=== PATIENT | female | born 1965 | race Hispanic/Latino ===

== ENCOUNTER → 2019-06-06 | Outpatient (CLI) | payer OTHER ==
[~2019-06-06] MED LIST: IOTHALAMATE MEGLUMINE 17.20% 250 ML BTL ONE
--- NOTE | 2019-06-06 13:19 | Diagnostic Imaging Report ---
EXAM: FL RETROGRADE CYSTOGRAM INDICATION: Bladder rupture COMPARISON: None available. Performing physician: Ivan Parks MD FINDINGS: HONEY BLENDER: The bowel gas pattern is non-obstructive. Multiple bilateral pelvic phleboliths noted BLADDER: Cysto conray contrast was instilled into the bladder by gravity via the indwelling Major catheter. The bladder fills with contrast and there is no evidence of leak or intraluminal filling defect to suggest mass or thrombus. Fluoroscopy Time: 0.5 minutes Radiation dose: 11.2 mGy IMPRESSION: Retrograde cystogram demonstrating no evidence of leak. Major catheter was successfully removed after the exam. Signed by: Ivan Parks MD on 06/06/2019 1:15 PM
== END ==
LOC: DX 10:42
PROVIDERS: ATTEND Obstetrics & Gynecology
DX: N99.72 Accidental puncture and laceration of a genitourinary system organ or structure during other procedure (principal)
CPT/HCPCS: 74430; Q9958

== ENCOUNTER 2020-02-21 13:26 | Observation (INO) | payer OTHER ==
[~2020-02-21] VITALS: Ht 162.6 cm; Wt 59.0 kg
[2020-02-21 14:26] LABS: PARTIAL THROMBOPLASTIN TIME 29.5 seconds (23.8-35.5)
[2020-02-21 14:28] LABS: BASOPHILS % 0.4 % (0.0-1.0); EOSINOPHILS # (AUTO) 0.2 (0.0-0.4); EOSINOPHILS % 1.9 % (0.0-6.0); HEMATOCRIT 37.4 % (34.2-44.1); HEMOGLOBIN 12.7 g/dL (12.0-16.0); LYMPHOCYTES # (AUTO) 2.9 (1.0-3.2); LYMPHOCYTES % 35.3 % (18.0-39.1); MEAN CORPUSCULAR HEMOGLOBIN 31.8 pg (28-32); MEAN CORPUSCULAR VOLUME 93.7 fL (81-99); MONOCYTES # (AUTO) 0.5 (0.2-0.8); MONOCYTES % 6.2 % (4.4-11.3); NEUTROPHILS # (AUTO) 4.6 (2.1-6.9); NEUTROPHILS % 55.4 % (38.7-80.0); PLATELET COUNT 265 x10e3/uL (140-360); RED BLOOD COUNT 3.99 x10e6/uL (3.6-5.1); RED CELL DISTRIBUTION WIDTH 12.3 % (11.7-14.4)
[2020-02-21 14:32] LABS: ALANINE AMINOTRANSFERASE 37 IU/L (0-55); ALBUMIN 4.3 g/dL (3.5-5.0); ALBUMIN/GLOBULIN RATIO 1.1 (0.8-2.0); ALKALINE PHOSPHATASE 79 IU/L (40-150); ANION GAP 17.8 mmol/L (8-16); BLOOD UREA NITROGEN 14 mg/dL (7-26); BUN/CREATININE RATIO 17 (6-25); CALCIUM 9.8 mg/dL (8.4-10.2); CARBON DIOXIDE 20 mmol/L (22-29); CHLORIDE 108 mmol/L (98-107); CREATINE KINASE 167 IU/L (29-168); CREATININE, SERUM 0.84 mg/dL (0.57-1.11); EST GLOMERULAR FILTRATION RATE > 60 ML/MIN (60-); GLUCOSE 120 mg/dL (74-118); INR 0.89; PROTHROMBIN TIME 12.5 seconds (11.9-14.5); SODIUM 143 mmol/L (136-145)
[2020-02-21 14:40] LABS: POTASSIUM 2.8 mmol/L (3.5-5.1)
[2020-02-21] MEDS ORDERED: POTASSIUM CHLORIDE 20 MEQ TAB CR PO STA (14:56)
--- NOTE | 2020-02-21 14:58 | Diagnostic Imaging Report ---
CT BRAIN WO HISTORY: Dizziness COMPARISON: None. TECHNIQUE: Noncontrast axial scans were obtained from skull base to the vertex. Coronal and sagittal reconstructions obtained from the axial data. One or more of the following dose reduction techniques were used: Automated exposure control, adjustment of the mA and/or kV according to patient size, and/or utilization of iterative reconstruction technique. DISCUSSION: Scalp/Skull: Unremarkable. Brain sulci: Appropriate for patient's age. Ventricles: Normal in size and configuration. No hydrocephalus. Extra-axial spaces: No masses or fluid collections. Parenchyma: No abnormal densities. No mass, hemorrhage, or large vascular territory acute infarct. Dural sinuses: No abnormal densities. Sellar/Suprasellar region: Intact. Skull base: Intact. Incidental findings: None. IMPRESSION: No intracranial abnormalities. Signed by: Dr. Santi Harrison M.D. on 02/21/2020 2:55 PM
--- NOTE | 2020-02-21 16:02 | Diagnostic Imaging Report ---
EXAMINATION: CHEST SINGLE (PORTABLE) INDICATION: CP COMPARISON: None FINDINGS: TUBES and LINES: None. LUNGS: Lungs are well inflated. Mild patchy bibasilar opacities. No evidence of lobar consolidation or pulmonary edema. PLEURA: No pleural effusion or pneumothorax. HEART AND MEDIASTINUM: The cardiomediastinal silhouette is unremarkable. BONES AND SOFT TISSUES: No acute osseous lesion. Soft tissues are unremarkable. UPPER ABDOMEN: No free air under the diaphragm. IMPRESSION: Mild patchy bibasilar opacities, which may represent atelectasis or infection in the appropriate clinical setting. No evidence of lobar pneumonia. Signed by: Dr. Shelby Milton MD on 02/21/2020 3:58 PM
--- NOTE | 2020-02-21 16:26 | Emergency Department Note ---
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 PT AAOX4. GIVEN NTG SL X 3 ENROUTE WITH PAIN FROM 03/08 TO 02/05. NAD. SR. NON COMPLIANT WITH [facility] MEDS. 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 Any updates have been documented here. Past Medical History Recent Fever: No Clinical Suspicion of Infectio: No New/Unexplained Change in Ment: No Past Medical History: Hypertension, GERD Social History Smoking Cessation: Unknown if ever smoked Counseling Performed: No Alcohol Use: None Any Illegal Drug Use: No TB Exposure/Symptoms: No Physically hurt or threatened: No Family History Family history of heart diseas: No Other Any Pre-Existing Lines (PICC,: Yes ([facility] EMS) Review of Systems Review of Systems Constitutional: Reports as per HPI, Reports weakness EENTM: Reports no symptoms Cardiovascular: Reports as per HPI Respiratory: Reports no symptoms Gastrointestinal: Reports no symptoms Genitourinary: Reports no symptoms Musculoskeletal: Reports no symptoms Integumentary: Reports no symptoms Neurological: Reports no symptoms Psychological: Reports no symptoms Endocrine: Reports no symptoms Hematological/Lymphatic: Reports no symptoms Physical Exam Related Data Allergies: Coded Allergies: aspirin (Verified Allergy, Unknown, 02/21/20) Triage Vital Signs Vital Signs Date Time Temp Pulse Resp B/P (MAP) Pulse Ox O2 Delivery O2 Flow Rate FiO2 02/21/20 13:28 97.8 111 14 173/91 100 Room Air Vital signs reviewed: Yes Physical Exam CONSTITUTIONAL Constitutional: Present well-developed, Present well-nourished HENT HENT: Present normocephalic, Present atraumatic, Present oropharynx clear/moist, Present nose normal HENT L/R: Present left ext ear normal, Present right ext ear normal EYES Eyes: Reports PERRL, Reports conjunctivae normal NECK Neck: Present ROM normal PULMONARY Pulmonary: Present effort normal, Present breath sounds normal CARDIOVASCULAR Cardiovascular: Present regular rhythm, Present heart sounds normal, Present capillary refill normal, Present normal rate GASTROINTESTINAL Abdominal: Present soft, Present nontender, Present bowel sounds normal GENITOURINARY Genitourinary: Present exam deferred SKIN Skin: Present warm, Present dry MUSCULOSKELETAL Musculoskeletal: Present ROM normal NEUROLOGICAL Neurological: Present alert, Present oriented x 3, Present no gross motor or sensory deficits PSYCHOLOGICAL Psychological: Present mood/affect normal, Present judgement normal Results Laboratory Result Diagram: 02/21/20 1342 02/21/20 1342 Laboratory Laboratory Tests Test 02/21/20 15:00 02/21/20 13:42 White Blood Count 8.24 x10e3/uL (4.8-10.8) Red Blood Count 3.99 x10e6/uL (3.6-5.1) Hemoglobin 12.7 g/dL (12.0-16.0) Hematocrit 37.4 % (34.2-44.1) Mean Corpuscular Volume 93.7 fL (81-99) Mean Corpuscular Hemoglobin 31.8 pg (28-32) Mean Corpuscular Hemoglobin Concent 34.0 g/dL (31-35) Red Cell Distribution Width 12.3 % (11.7-14.4) Platelet Count 265 x10e3/uL (140-360) Neutrophils (%) (Auto) 55.4 % (38.7-80.0) Lymphocytes (%) (Auto) 35.3 % (18.0-39.1) Monocytes (%) (Auto) 6.2 % (4.4-11.3) Eosinophils (%) (Auto) 1.9 % (0.0-6.0) Basophils (%) (Auto) 0.4 % (0.0-1.0) Neutrophils # (Auto) 4.6 (2.1-6.9) Lymphocytes # (Auto) 2.9 (1.0-3.2) Monocytes # (Auto) 0.5 (0.2-0.8) Eosinophils # (Auto) 0.2 (0.0-0.4) Basophils # (Auto) 0.0 (0.0-0.1) Absolute Immature Granulocyte (auto 0.07 x10e3/uL (0-0.1) Prothrombin Time 12.5 seconds (11.9-14.5) Prothromb Time International Ratio 0.89 Activated Partial Thromboplast Time 29.5 seconds (23.8-35.5) Sodium Level 143 mmol/L (136-145) Potassium Level 2.8 mmol/L (3.5-5.1) Chloride Level 108 mmol/L (98-107) Carbon Dioxide Level 20 mmol/L (22-29) Anion Gap 17.8 mmol/L (8-16) Blood Urea Nitrogen 14 mg/dL (7-26) Creatinine 0.84 mg/dL (0.57-1.11) Estimat Glomerular Filtration Rate > 60 ML/MIN (60-) BUN/Creatinine Ratio 17 (6-25) Glucose Level 120 mg/dL (74-118) Calcium Level 9.8 mg/dL (8.4-10.2) Magnesium Level 1.6 MG/DL (1.3-2.1) Total Bilirubin 0.4 mg/dL (0.2-1.2) Aspartate Amino Transf (AST/SGOT) 27 IU/L (5-34) Alanine Aminotransferase (ALT/SGPT) 37 IU/L (0-55) Alkaline Phosphatase 79 IU/L (40-150) Creatine Kinase 167 IU/L (29-168) Creatine Kinase MB 1.90 ng/mL (0-5.0) Troponin I < 0.001 ng/mL (0-0.300) B-Type Natriuretic Peptide 13.4 pg/mL (0-100) Total Protein 8.2 g/dL (6.5-8.1) Albumin 4.3 g/dL (3.5-5.0) Globulin 3.9 g/dL (2.3-3.5) Albumin/Globulin Ratio 1.1 (0.8-2.0) Lab results reviewed: Yes Imaging Imaging results reviewed: Yes Procedures 12 Lead ECG Interpretation ECG Interpretation : ECG: ECG 1 Sales Review Clerk: Interpreted by ED physician Date: Feb 21, 2020 Time: 13:43 Rhythm: sinus rhythm Rate: normal (80) QRS axis: normal ST segments normal: Yes T waves normal: Yes Clinical Impression: abnormal ECG (PROLONGED QT) Assessment & Plan Medical Decision Making MDM CBC, CHEM, ECG, CXR, CT BRAIN, CARDIAC ENZYMES - R/O STEMI/NSTEMI, ELECTROLYTE ABNL, CEREBRAL BLEED Reassessment Reassessment SPOKE WITH DR BURTON FOR ADMIT, OBS TELE Assessment & Plan Final Impression: (1) Near syncope (2) Chest pain (3) Palpitations (4) Hypokalemia Depart Disposition: ADMITTED Last Vital Signs Date Time Temp Pulse Resp B/P (MAP) Pulse Ox O2 Delivery O2 Flow Rate FiO2 02/21/20 14:14 84 14 158/77 100 Room Air 02/21/20 14:06 98.6 Medications in the ED Potassium Chloride 40 meq NOW STAT PO Last administered on 02/21/20at 15:15; Admin Dose 40 MEQ; Start 02/21/20 at 14:56; Stop 02/21/20 at 15:20; Status DC JUANITO VERDUZCO MD Feb 21, 2020 16:26
[2020-02-21] MEDS ORDERED: NITROGLYCERIN 0.4 MG SUBL SL PRN (16:30)
[2020-02-21] MEDS ORDERED: ONDANSETRON HCL INJ 2MG/ML 2ML 2 MG/ML VIAL IV PRN (16:30)
[2020-02-21] MEDS ORDERED: KCL 20MEQ/.9 SOD CHL 1,000 ML IV ONE (17:15)
--- NOTE | 2020-02-21 18:15 | NUR ---
Received patient via wheelchair from ER. Respiration even and unlabored without SOB. Denies chest discomfort. Call light in reach.
[2020-02-21] MEDS: FAMOTIDINE 20 MG/2 ML VIAL IV SCH (18:22)
[2020-02-21 18:24] VITALS: BP 148/83
[2020-02-21] MEDS ORDERED: IPRATROPIUM BROMIDE INHALER 12.9 GM INH INH PRN (19:00)
[2020-02-21] MEDS ORDERED: ALBUTEROL SULFATE HFA 8GM INHALATION AEROSOL INH PRN (19:00)
[2020-02-21] MEDS ORDERED: AZITHROMYCIN 500MG/NS 250 ML 250 ML IV SCH (19:00)
[2020-02-21] MEDS ORDERED: BENZONATATE 100 MG CAP PO PRN (19:00)
[2020-02-21] MEDS ORDERED: CEFTRIAXONE SOD 1 GM/NS 50 ML 50 ML IV SCH (19:00)
[2020-02-21] MEDS ORDERED: MAGNESIUM SULFATE 2GM/50ML IV NR (19:30)
[2020-02-21 19:53] VITALS: BP 139/88
[2020-02-21 20:00] VITALS: BP 139/88
[2020-02-21 20:20] LABS: CREATINE KINASE MB 1.7 ng/mL (0-5.0)
[2020-02-21] MEDS ORDERED: LOSARTAN POTAS100 MG PO (20:33)
--- NOTE | 2020-02-21 20:35 | NUR ---
SPOKE TO DR. BURTON REGARDING PATIENT C/O HEADACHE AND REQUEST FOR SLEEPING MEDICINE. NEW ORDERS RECEIVED FOR PRN TYLENOL 650MG Q4H PO AND PRN BENADRYL 50MG HS PO
[2020-02-21] MEDS ORDERED: DIPHENHYDRAMINE HCL 25 MG CAP PO PRN (20:45)
[2020-02-21] MEDS ORDERED: ACETAMINOPHEN 325 MG TAB PO PRN (20:45)
--- NOTE | 2020-02-21 22:27 | Diagnostic Imaging Report ---
EXAM: CT Chest WITHOUT contrast 02/21/2020 8:42 PM INDICATION: Chest pain. Abnormal chest x-ray with possible COVID 19 COMPARISON: None TECHNIQUE: Chest was scanned utilizing a multidetector helical scanner from the lung apex through the level of the adrenal glands without administration of IV contrast. Absence of intravenous contrast decreases sensitivity for detection of lymphadenopathy and vascular pathology. Coronal and sagittal reformations were obtained. Routine protocol was performed. IV CONTRAST: None RADIATION DOSE: Total DLP: mGy*cm Estimated effective dose: (DLP x 0.014 x size factor) mSv COMPLICATIONS: None FINDINGS: LINES/ TUBES: None. LUNGS AND AIRWAYS: 3 mm noncalcified nodule in the right middle lobe anteriorly on image 56. Lingular linear atelectasis. Airways are normal. PLEURA: The pleural spaces are clear. HEART AND MEDIASTINUM: The thyroid gland is normal. No mediastinal, hilar or axillary lymphadenopathy. The heart is normal in size.. There is no pericardial effusion. UPPER ABDOMEN: Limited non-contrast views of the upper abdomen show hepatic steatosis with focal fatty sparing about the gallbladder fossa.. 1.5 cm cyst in the left hepatic lobe. 3 mm low-attenuation lesion in the posterior right hepatic lobe on image 104 is too small to be characterize, however, most likely benign in etiology.. The adrenal glands are normal. BONES: The visualized bony thorax is within normal limits. SOFT TISSUES: Unremarkable. IMPRESSION: No evidence of pneumonia as per clinical query. Signed by: Dr. Maureen Medrano M.D. on 02/21/2020 10:24 PM
[2020-02-22] VITALS: BP 117/96
[2020-02-22] MEDS ORDERED: POTASSIUM CHLORIDE 20 MEQ TAB CR PO ONE
[2020-02-22 01:57] LABS: CREATINE KINASE MB 1.4 ng/mL (0-5.0)
[2020-02-22 04:00] VITALS: BP 120/82
[2020-02-22] MEDS: FAMOTIDINE 20 MG/2 ML VIAL IV SCH (05:16)
[2020-02-22 07:46] LABS: BASOPHILS % 0.5 % (0.0-1.0); EOSINOPHILS # (AUTO) 0.2 (0.0-0.4); EOSINOPHILS % 1.9 % (0.0-6.0); HEMATOCRIT 33.5 % (34.2-44.1); HEMOGLOBIN 11.7 g/dL (12.0-16.0); MEAN CORPUSCULAR HEMOGLOBIN 33.1 pg (28-32); MEAN CORPUSCULAR HGB CONC 34.9 g/dL (31-35); MEAN CORPUSCULAR VOLUME 94.6 fL (81-99); MONOCYTES # (AUTO) 0.7 (0.2-0.8); MONOCYTES % 7.7 % (4.4-11.3); NEUTROPHILS # (AUTO) 5.9 (2.1-6.9); NEUTROPHILS % 66.7 % (38.7-80.0); PLATELET COUNT 250 x10e3/uL (140-360); RED BLOOD COUNT 3.54 x10e6/uL (3.6-5.1); RED CELL DISTRIBUTION WIDTH 12.3 % (11.7-14.4)
[2020-02-22 08:09] LABS: ALANINE AMINOTRANSFERASE 31 IU/L (0-55); ALBUMIN 3.5 g/dL (3.5-5.0); ALKALINE PHOSPHATASE 55 IU/L (40-150); ANION GAP 11.3 mmol/L (8-16); BLOOD UREA NITROGEN 11 mg/dL (7-26); BUN/CREATININE RATIO 13 (6-25); CALCIUM 8.8 mg/dL (8.4-10.2); CARBON DIOXIDE 21 mmol/L (22-29); CHLORIDE 112 mmol/L (98-107); CHOL/HDL RATIO 4.8 (3.0-3.6); CHOLESTEROL 189 MD/DL (0-199); CREATININE, SERUM 0.83 mg/dL (0.57-1.11); EST GLOMERULAR FILTRATION RATE > 60 ML/MIN (60-); GLUCOSE 94 mg/dL (74-118); HDL CHOLESTEROL 39 MG/DL (40-60); LDL CHOLESTEROL 116 MG/DL (60-130); POTASSIUM 4.3 mmol/L (3.5-5.1); SODIUM 140 mmol/L (136-145); TRIGLYCERIDES 168 MG/DL (0-149)
[2020-02-22 08:33] LABS: MAGNESIUM 2.1 MG/DL (1.3-2.1); PHOSPHORUS 2.9 MG/DL (2.3-4.7)
[2020-02-22 08:53] VITALS: BP 129/84
[2020-02-22 09:06] LABS: CREATINE KINASE MB 1.3 ng/mL (0-5.0)
[2020-02-22] MEDS ORDERED: LISINOPRIL 10 MG TAB PO ONE (09:30)
[2020-02-22 09:31] VITALS: BP 129/84
[2020-02-22] MEDS ORDERED: MAGNESIUM OXIDE 400 MG TAB PO ONE (09:45)
[2020-02-22] MEDS ORDERED: MAGNESIUM OXID400 MG PO (10:08)
[2020-02-22] MEDS ORDERED: LISINOPRIL10 MG PO (10:08)
--- NOTE | 2020-02-22 10:16 | History and Physical ---
PRIMARY CARE PHYSICIAN: Larry Riddle MD. CHIEF COMPLAINT: Generalized weakness, dizziness, chest pressure, palpitations. HISTORY OF PRESENT ILLNESS: The patient is a 54-year-old female, who had some symptoms of upper chest onset with hypertensive urgency. The patient with potassium of 2.8, and she was having chest pressures, generalized weakness, and also having some palpitations. Along with that she was having mid systolic blood pressure in the 180s. EMS gave the patient nitroglycerin sublingual, which resulted in given the patient headache. The patient is otherwise stable, however. Cardiac enzyme was negative. In the emergency room, chest x-ray showed vague opacity of the bilateral basilar lung. Therefore, a CT of the chest was obtained. The patient is otherwise stable. She was placed on IV fluids and potassium replacement was done. PAST MEDICAL HISTORY: Hypertension. PAST SURGICAL HISTORY: Noncontributory. SOCIAL HISTORY: The patient does not smoke or use alcohol. No regular drugs. ALLERGIES: ASPIRIN. HOME MEDICATIONS: Losartan 100 mg daily. PHYSICAL EXAMINATION: VITAL SIGNS: Temperature was 98, blood pressure 173/91, pulse rate 111, respiration 14. GENERAL: The patient is not in acute distress. She is awake. HEENT: Normocephalic and atraumatic. Anicteric. NECK: Supple grossly. PULMONARY: Clear. CARDIOVASCULAR: Regular rate and rhythm. ABDOMEN: Soft and unremarkable. EXTREMITIES: No cyanosis or edema. NEUROLOGIC: No gross focal deficits. LABORATORY DATA: Sodium is 143, potassium 2.8, chloride 108, bicarb 20, BUN is 14, creatinine 0.8 glucose 129, magnesium is 1.6, albumin is 4.38. Liver enzyme is unremarkable/normal. WBC is 8.8, hemoglobin 12.7, hematocrit 37, platelets of 265. Chest x-ray show mild patchy bibasilar opacity. Chest x-ray was one view portable. CT brain unremarkable. IMPRESSION: 1. Hypertensive urgency. 2. Abnormal chest x-ray. 3. Low potassium. 4. Low magnesium of 1.7. PLAN: 1. Obtain CT of the chest without contrast to address the possibility of the abnormal chest x-ray. 2. Replace potassium. 3. IV fluids. 4. Hypertensive medication. 5. Repeat lab in the morning. The patient is otherwise stable. We will obtain a COVID PCR, and if CT scan is normal, we will obtain a rapid test as well. The patient is otherwise stable. MD SHAYY Cuadra/IRLANDA /[id number]
--- NOTE | 2020-02-22 11:11 | Discharge Summary ---
PRIMARY CARE PHYSICIAN: Larry Riddle MD. Please review my history and physical. DIAGNOSES: Hypertensive urgency; hypokalemia, corrected; generalized weakness, resolved. HISTORY OF PRESENT ILLNESS: A 54-year-old female. Please review my history and physical on this patient. Potassium that was low at 2.8, now replaced and normal at 4.3. Magnesium 1.6, after replacement now is 2.1. The patient did receive 2 g IV magnesium. Her blood pressure is better now. The patient was given p.r.n. blood pressure medication. She is stable. She will go home today with the following changes: 1. Stop losartan. 2. Lisinopril 10 mg daily. 3. Magnesium oxide 400 mg twice a day. 4. The patient to follow up with Dr. Riddle next week. 5. The patient will need repeated blood work. 6. The patient is otherwise stable. CT chest was negative. No sign of pneumonia. No opacity of the bases of the lung. Her COVID PCR is pending and results will be available in a few days. 7. The patient is otherwise stable. She is asymptomatic. She is feeling much better. No weakness. No heaviness in the chest or any congestion. No headaches. The patient is stable and discharged home with 2 medications as mentioned above and discontinue losartan. I discussed with the patient's plan regarding followup with Dr. Riddle, her primary care physician for medication adjustment. MD SHAYY Cuadra/MAYCOLL /[id number]
--- NOTE | 2020-02-22 11:28 | NUR ---
Discharge instruction provided regarding new medications and side effects. Home prescription medication given. Discharge packet provided. PIV to left AC discontinued, catheter tip intact, no bleeding noted. Transported via wheelchair to private vehicle. All personal belongings taken.
== END 2020-02-22 11:28 | disposition home or self-care (01) ==
LOC: ER 13:33 → ERHOLD 16:32 → MED/SURG 18:06
PROVIDERS: ADMIT Internal Medicine; ATTEND Internal Medicine
DX: E87.6 Hypokalemia (principal); I16.0 Hypertensive urgency; Z11.59 Encounter for screening for other viral diseases; E83.42 Hypomagnesemia; K21.9 Gastro-esophageal reflux disease without esophagitis
CPT/HCPCS: 36415 ×2; 70450; 71045; 71250; 80053 ×2; 80061; 82550 ×2; 82553 ×2; 83735 ×2; 83880; 84100; 84484 ×2; 85025 ×2; 85610; 85730; 93005; 99285; G0378 ×2; J0456; J0696; J3475; U0002

== ENCOUNTER 2020-03-04 15:22 | Observation (INO) | payer OTHER ==
[~2020-03-04] VITALS: Ht 152.4 cm; Wt 59.9 kg
[~2020-03-04 15:22] MED LIST changes: -IOTHALAMATE MEGLUMINE 17.20% 250 ML BTL ONE; +LISINOPRIL10 MG PO; +LOSARTAN POTAS100 MG PO; +MAGNESIUM OXID400 MG PO
[2020-03-04 16:14] LABS: BASOPHILS % 0.3 % (0.0-1.0); EOSINOPHILS # (AUTO) 0.1 (0.0-0.4); EOSINOPHILS % 1.2 % (0.0-6.0); HEMATOCRIT 38.4 % (34.2-44.1); HEMOGLOBIN 13.2 g/dL (12.0-16.0); LYMPHOCYTES # (AUTO) 1.3 (1.0-3.2); LYMPHOCYTES % 14.5 % (18.0-39.1); MEAN CORPUSCULAR HEMOGLOBIN 32.4 pg (28-32); MEAN CORPUSCULAR HGB CONC 34.4 g/dL (31-35); MEAN CORPUSCULAR VOLUME 94.1 fL (81-99); MONOCYTES # (AUTO) 0.7 (0.2-0.8); MONOCYTES % 7.5 % (4.4-11.3); NEUTROPHILS % 76.2 % (38.7-80.0); PLATELET COUNT 312 x10e3/uL (140-360); RED BLOOD COUNT 4.08 x10e6/uL (3.6-5.1); RED CELL DISTRIBUTION WIDTH 11.9 % (11.7-14.4)
[2020-03-04 16:28] LABS: CLARITY,URINE CLEAR (CLEAR); COLOR,URINE YELLOW (YELLOW); LEUKOCYTE ESTERASE ,URINE NEGATIVE (NEGATIVE)
[2020-03-04 16:29] LABS: BILIRUBIN,URINE NEGATIVE (NEGATIVE); KETONES,URINE NEGATIVE (NEGATIVE); NITRITE,URINE NEGATIVE (NEGATIVE); PROTEIN,URINE DIPSTICK NEGATIVE (NEGATIVE); URINE UROBILINOGEN 0.2 mg/dL (0.2 - 1)
[2020-03-04 16:36] LABS: RBC,URINE 0-5 /HPF (0-5)
[2020-03-04 16:39] LABS: ALANINE AMINOTRANSFERASE 32 IU/L (0-55); ALBUMIN 4.3 g/dL (3.5-5.0); ALKALINE PHOSPHATASE 78 IU/L (40-150); ANION GAP 12.9 mmol/L (8-16); BLOOD UREA NITROGEN 13 mg/dL (7-26); BUN/CREATININE RATIO 16 (6-25); CALCIUM 9.9 mg/dL (8.4-10.2); CARBON DIOXIDE 24 mmol/L (22-29); CHLORIDE 106 mmol/L (98-107); CREATINE KINASE 52 IU/L (29-168); CREATININE, SERUM 0.79 mg/dL (0.57-1.11); EST GLOMERULAR FILTRATION RATE > 60 ML/MIN (60-); GLUCOSE 116 mg/dL (74-118); POTASSIUM 3.9 mmol/L (3.5-5.1); SODIUM 139 mmol/L (136-145)
--- OUTSIDE RECORDS SUMMARY | 2020-03-04 17:01 | XMS REPORT | Continuity of Care Document ---
Author Author [facility] t Organization [facility] Address [address] [place] [address] Phone Unavailable Care Team Providers Care Field Spec Name Role Phone MD KAREEM PCP ANDREW BUROTN Attphys Unavailable DAFASHYYANIRA Attphys Unavailable ANDREW BURTON Admphys Unavailable Payers Payer Name Policy Type Policy Number Effective Date Expiration Date Dung Prasad Pos [id number] 2017 00:00:00 [facility] Problems Condition Name Condition Details Condition Category Status Onset Date Resolution Date Last Treatment Date Treating Clinician Comments Source Chest pain Problem Active [facility] Palpitations Problem Active [facility] Pre-syncope Problem Active [facility] Hypokalemia Problem Active [facility] Allergies, Adverse Reactions, Alerts Allergy Name Allergy Type Status Severity Reaction(s) Onset Date Inacti ve Date Treating Clinician Comments Source Aspirin Allergy to substance Active 2020-02-21 00:00:00 [facility] aspirin DA Active [place] 2019-05-21 00:00:00 [facility] ASPIRIN DA Active U 2008-03-09 00:00:00 [facility] No Known Contrast Allergies DA Active U 2008-03-09 00:00: 00 [facility] No Known Food Allergies DA Active U 2008-03-09 00:00:00 [facility] No Known Other Allergies DA Active U 2008-03-09 00:00:00 [facility] Social History Social Habit Start Date Stop Date Quantity Comments Source Sex Assigned At 1965 00:00:00 1965 00:00:00 Female [facility] Medications Ordered Medication Name Filled Medication Name Start Date Stop Da te Current Medication? Ordering Clinician Indication Dosage Frequency Signature (SIG) Comments Components Source Lisinopril Lisinopril Yes 10 Daily [facility] Magnesium Oxide Magnesium Oxide Yes 400 Twice A Day [facility] Losartan Potassium Losartan Potassium 2020-02-22 00:00:00 No 100 Daily [facility] Vital Signs Vital Name Observation Time Observation Value Comments Source Body Temperature 2020-02-22 09:31:00 98.2 [degF] [facility] BMI (Body Mass Index) 2020-02-22 00:08:00 22.3 kg/m2 [facility] Weight 2020-02-21 13:28:00 130 [lb_av] [facility] Procedures Procedure Date / Time Performed Performing Clinician [facility] e Computed tomography of brain without radiopaque contrast 2020-01 00:00:00 [facility] Computed tomography of chest without contrast 2020-02-21 00:00:0 0 [facility] Plan of Care Planned Activity Planned Date Details Comments Source Instructions COVID-19: 10/13/2019 [facility] Instructions Chest Pain - Noncardiac [facility] Instructions Hypokalemia [facility] Encounters Start Date/Time End Date/Time Encounter Type Admission Type Attendi [facility] Care Department Encounter ID Source 2020-02-21 16:32:00 2020-02-21 16:32:00 Admitted Inpatient (obs) 1 ANDREW BURTON [facility] [id number] [facility] 2019-06-06 09:42:00 2019-06-06 09:42:00 Registered Clinic 3 YANIRA MILLER [facility] [id number] [facility] Results Test Description Test Time Test Comments Results Result Comments Source Blood leukocytes automated count (number/volume) 2020-02-22 07:31:00 Test Item White Blood Count (test code = 6690-2) 8.81 4.8-10.8 [facility] erythrocytes automated count (number/volume)2020-02-22 07:31:00* Test Item Value Reference Range Interpretation Comments Red Blood Count (test code = 789-8) 3.54 3.6-5.1 [facility] hemoglobin measurement (moles/volume)2020-02-22 07:31:00* Test Item Value Reference Range Interpretation Comments Hemoglobin (test code = 89051-9) 11.7 12.0-16.0 [facility]ennialAutomated blood hematocrit (volume fraction)2020-02-22 07:31:00* Test Item Value Reference Range Interpretation Comments Hematocrit (test code = 4544-3) 33.5 34.2-44.1 [facility]ennialAutomated erythrocyte mean corpuscular gegvmr6282-19-64 07:31:00* Test Item Value Reference Range Interpretation Comments Mean Corpuscular Volume (test code = 787-2) 94.6 81-99 [facility]ennialAutomated erythrocyte mean corpuscular hemoglobin (mass per erythrocyte)2020-02-22 07:31:00* Test Item Value Reference Range Interpretation Comments Mean Corpuscular Hemoglobin (test code = 785-6) 33.1 28-32 [facility]ennialAutomated erythrocyte mean corpuscular hemoglobin concentration measurement (mass/volume)2020-02-22 07:31:00* Test Item Value Reference Range Interpretation Comments Mean Corpuscular Hemoglobin Concent (test code = 786-4) 34.9 31-35 [facility] CentennialRDW HmqWr-Pdj1057-26-26 07:31:00* Test Item Value Reference Range Interpretation Comments Red Cell Distribution Width (test code = 72868-1) 12.3 11.7 -14.4 [facility]ennialAutomated blood platelet count (count/volume)2020-02-22 07:31:00* Test Item Value Reference Range Interpretation Comments Platelet Count (test code = 777-3) 250 140-360 [facility] CentennialAutomated blood segmented neutrophil count as percentage of total uxxdzeoggm9064-04-45 07:31:00* Test Item Value Reference Range Interpretation Comments Neutrophils (%) (Auto) (test code = 49902-5) 66.7 38.7-80.0 [facility]ennialAutomated blood lymphocyte count as percentage ot total zmjneaszjh4247-15-43 07:31:00* Test Item Value Reference Range Interpretation Comments Lymphocytes (%) (Auto) (test code = 736-9) 23.0 18.0-39.1 [facility]ennialAutomated blood monocyte count as percentage of total krlgpelcjd9592-47-63 07:31:00* Test Item Value Reference Range Interpretation Comments Monocytes (%) (Auto) (test code = 5905-5) 7.7 4.4-11.3 [facility]ennialAutomated blood eosinophil count as percentage of total fqenlixkvg3314-92-54 07:31:00* Test Item Value Reference Range Interpretation Comments Eosinophils (%) (Auto) (test code = 713-8) 1.9 0.0-6.0 [facility]ennialAutomated blood basophil count as percentage of total yqbywtoskm7028-90-81 07:31:00* Test Item Value Reference Range Interpretation Comments Basophils (%) (Auto) (test code = 706-2) 0.5 0.0-1.0 [facility] CentennialFluoroscopic procedure less than one hour xtloeuly4416-63-76 07:31:00* Test Item Value Reference Range Interpretation Comments IM GRANULOCYTES % (test code = IM GRANULOCYTES %) 0.2 0.0- 1.0 [facility]ennialAutomated blood neutrophil count 2020-02-22 07:31:00* Test Item Value Reference Range Interpretation Comments Neutrophils # (Auto) (test code = 751-8) 5.9 2.1-6.9 [facility]ennialBlood lymphocytes count (number/volume) 2020-02-22 07:31:00* Test Item Value Reference Range Interpretation Comments Lymphocytes # (Auto) (test code = 52631-4) 2.0 1.0-3.2 [facility]ennialBlood monocytes automated count (number/volume)2020-02-22 07:31:00* Test Item Value Reference Range Interpretation Comments Monocytes # (Auto) (test code = 742-7) 0.7 0.2-0.8 [facility]ennialAutomated blood eosinophil count 2020-02-22 07:31:00* Test Item Value Reference Range Interpretation Comments Eosinophils # (Auto) (test code = 711-2) 0.2 0.0-0.4 [facility]ennialAutomated blood basophil count (count/volume)2020-02-22 07:31:00* Test Item Value Reference Range Interpretation Comments Basophils # (Auto) (test code = 704-7) 0.0 0.0-0.1 [facility] CentennialFluoroscopic procedure less than one hour wizrbpkh2492-31-05 07:31:00* Test Item Value Reference Range Interpretation Comments Absolute Immature Granulocyte (auto (oxana t code = Absolute Immature Granulocyte (auto) 0.02 0-0.1 [facility] sodium measurement (moles/volume)2020-02-22 07:31:00* Test Item Value Reference Range Interpretation Comments Sodium Level (test code = 2951-2) 140 136-145 [facility] potassium measurement (moles/volume)2020-02-22 07:31:00* Test Item Value Reference Range Interpretation Comments Potassium Level (test code = 2823-3) 4.3 3.5-5.1 [facility] plasma chloride measurement (moles/volume)2020-02-22 07:31:00* Test Item Value Reference Range Interpretation Comments Chloride Level (test code = 2075-0) 112 98-107 [facility] plasma carbon dioxide, total measurement (moles/volume)2020-02-22 07:31:00* Test Item Value Reference Range Interpretation Comments Carbon Dioxide Level (test code = 2028-9) 21 22-29 [facility] plasma anion oom5324-24-14 07:31:00* Test Item Value Reference Range Interpretation Comments Anion Gap (test code = 87193-7) 11.3 8-16 [facility] plasma urea nitrogen measurement (mass/volume)2020-02-22 07:31:00* Test Item Value Reference Range Interpretation Comments Blood Urea Nitrogen (test code = 3094-0) 11 7-26 [facility] plasma creatinine measurement (mass/volume)2020-02-22 07:31:00* Test Item Value Reference Range Interpretation Comments Creatinine (test code = 2160-0) 0.83 0.57-1.11 [facility] or plasma urea nitrogen/creatinine mass vvgyi8387-71-77 07:31:00* Test Item Value Reference Range Interpretation Comments BUN/Creatinine Ratio (test code = 3097-3) 13 6-25 [facility] CentennialEstimated glomerular filtration rate (GFR) wyqrojonjhdyy2725-32-78 07:31:00* Test Item Value Reference Range Interpretation Comments Estimat Glomerular Filtration Rate (test code = 277683277) > 60 >60 Ranges were taken from the National Kidney Disease Education Program and the April [facility] literature.Reference ranges:60 or greater: Dalnpn29-45 ( for 3 consecutive months): Chronic kidney disease 15 or less: Kidney failureBaylor Scott & White Medical Center – CentennialGlucose cjyqmojvgje8886-16-08 07:31:00* Test Item Value Reference Range Interpretation Comments Glucose Level (test code = OZJ6666) 94 74-118 [facility] plasma calcium measurement (mass/volume)2020-02-22 07:31:00* Test Item Value Reference Range Interpretation Comments Calcium Level (test code = 11402-0) 8.8 8.4-10.2 [facility] CentennialPhosphorus ysrlwnfnyoe6827-89-78 07:31:00 * Test Item Value Reference Range Interpretation Comments Phosphorus Level (test code = SLZ1648) 2.9 2.3-4.7 [facility] plasma magnesium measurement (mass/volume)2020-02-22 07:31:00* Test Item Value Reference Range Interpretation Comments Magnesium Level (test code = 87009-4) 2.1 1.3-2.1 [facility] plasma total bilirubin measurement (mass/volume)2020-02-22 07:31:00* Test Item Value Reference Range Interpretation Comments Total Bilirubin (test code = 1975-2) 0.5 0.2-1.2 [facility] CentennialFluoroscopic procedure less than one hour wkblpbwx9574-49-42 07:31:00* Test Item Value Reference Range Interpretation Comments Aspartate Amino Transf (AST/SGOT) (test code = Aspartate Amino Transf (AST/SGOT)) 20 5-34 [facility] or plasma alanine aminotransferase measurement (enzymatic activity/volume)2020-02-22 07:31:00* Test Item Value Reference Range Interpretation Comments Alanine Aminotransferase (ALT/SGPT) (test code = 1742-6) 31 0-55 [facility] or plasma protein measurement (mass/volume)2020-02-22 07:31:00* Test Item Value Reference Range Interpretation Comments Total Protein (test code = 2885-2) 7.0 6.5-8.1 [facility] plasma albumin measurement (mass/volume)2020-02-22 07:31:00* Test Item Value Reference Range Interpretation Comments Albumin (test code = 1751-7) 3.5 3.5-5.0 [facility] CentennialPlasma globulin measurement (mass/volume) 2020-02-22 07:31:00* Test Item Value Reference Range Interpretation Comments Globulin (test code = 26107-5) 3.5 2.3-3.5 [facility] plasma albumin/globulin mass pwgxp0387-06-05 07:31:00* Test Item Value Reference Range Interpretation Comments Albumin/Globulin Ratio (test code = 1759-0) 1.0 0.8-2.0 [facility] plasma alkaline phosphatase measurement (enzymatic activity/volume)2020-02-22 07:31:00* Test Item Value Reference Range Interpretation Comments Alkaline Phosphatase (test code = 6768-6) 55 40-150 [facility] triglyceride measurement (mass/volume)2020-02-22 07:31:00* Test Item Value Reference Range Interpretation Comments Triglycerides Level (test code = 2571-8) 168 0-149 [facility] plasma cholesterol measurement (mass/volume)2020-02-22 07:31:00* Test Item Value Reference Range Interpretation Comments Cholesterol Level (test code = 2093-3) 189 0-199 Less than 200 mg/dL Low Hdtj180 - 239 mg/dL Borderline Sumo147 m g/dl and greater High Risk [facility] cholesterol in LDL measurement (mass/volume) 2020-02-22 07:31:00* Test Item Value Reference Range Interpretation Comments LDL Cholesterol (test code = 2089-1) 116 60-130 [facility] cholesterol in HDL measurement (mass/volume)2020-02-22 07:31:00* Test Item Value Reference Range Interpretation Comments HDL Cholesterol (test code = 2085-9) 39 40-60 [facility] or plasma total cholesterol/cholesterol in HDL mass ptbag6724-00-55 07:31:00* Test Item Value Reference Range Interpretation Comments Cholesterol/HDL Ratio (test code = 9830-1) 4.8 3.0-3.6 [facility] plasma creatine kinase measurement (enzymatic activity/volume)2020-02-22 07:31:00* Test Item Value Reference Range Interpretation Comments Creatine Kinase (test code = 2157-6) 105 29-168 [facility] plasma creatine kinase MB measurement (mass/volume)2020-02-22 07:31:00* Test Item Value Reference Range Interpretation Comments Creatine Kinase MB (test code = 61177-4) 1.30 0-5.0 [facility] CentennialTroponin I measurement by highly sensitive enzyme foxqalpuxyi5628-05-65 07:31:00* Test Item Value Reference Range Interpretation Comments Troponin I (test code = 02037-9) 0.003 0-0.300 [facility] [id number] 22:12:00 [facility] [address] [address] Patient Name: TANIA GIBSON MR #: [id number] : 1965 Age/Sex: 54/F Req #: [id number] Adm Physician: ANDREW BURTON MD Ordered by: ANDREW BURTON MD Report #: [id number] Location: MED/SURG Room/Bed: [facility] Procedure: [id number] CT/CT CHEST WO Exam Date: 02/21/20 Exam Time: 2041 REPORT STATUS: Signed EXAM: CT Chest WITHOUT cont rast 02/21/2020 8:42 PM INDICATION: Chest pain. Abnormal chest x-ray with possi ble COVID 19 COMPARISON: None TECHNIQUE: Chest was scanned utilizing a mu ltidetector helical scanner from the lung apex through the level of the adrena l glands without administration of IV contrast. Absence of intravenous contras t decreases sensitivity for detection of lymphadenopathy and vascular patholog y. Coronal and sagittal reformations were obtained. Routine protocol was perfo rmed. IV CONTRAST: None RADIATION DOSE: Total DLP: mGy*cm Estimated effective dose: (DLP x 0.014 x size factor) mSv COMPLICATIONS: None FINDINGS: LINES/ TUBES: None. ENIO NGS AND AIRWAYS: 3 mm noncalcified nodule in the right middle lobe anteriorly on image 56. Lingular linear atelectasis. Airways are normal. PLEURA: The p leural spaces are clear. HEART AND MEDIASTINUM: The thyroid gland is normal . No mediastinal, hilar or axillary lymphadenopathy. The heart is normal in size.. There is no pericardial effusion. UPPER ABDOMEN: Limited non- contrast views of the upper abdomen show hepatic steatosis with focal fatty sp aring about the gallbladder fossa.. 1.5 cm cyst in the left hepatic lobe. 3 mm low-attenuation lesion in the posterior right hepatic lobe on image 104 is to o small to be characterize, however, most likely benign in etiology.. The adre nal glands are normal. BONES: The visualized bony thorax is within normal l imits. SOFT TISSUES: Unremarkable. IMPRESSION: No evidence of pneum onia as per clinical query. Signed by: Dr. Maureen Mendes M.D. on 10:24 PM Dictated By: KATHERINE MENDES MD, MD 23 Transcribed By: ANNIE on 02/21/202223 COPY TO: ANDREW BURTON MD CHEST SINGLE (PORTABLE)2020-02-21 15:56:[address] [address] Patient Name: TANIA GIBSON MR #: [id number] : 1965 Age/Sex: 54/F Req #: [id number] Adm Physician: Ordered by: JUANITO VERDUZCO MD Report #: [id number] Location: ER Room/Bed: Procedure: [id number] DX/CHEST SING SETH (PORTABLE) Exam Date: 02/21/20 Exam Time: 1434 REPORT STATUS: Signed EXAMINATION: CHEST SINGLE (PORTABLE) INDICATION: CP COMPARISON: None FINDINGS: TUBES and LINES: None. LUNGS: Lungs are well inflated. Mil d patchy bibasilar opacities. No evidence of lobar consolidation or pulmonary edema. PLEURA: No pleural effusion or pneumothorax. HEART AND MEDIA STINUM: The cardiomediastinal silhouette is unremarkable. BONES AND SO FT TISSUES: No acute osseous lesion. Soft tissues are unremarkable. UPP ER ABDOMEN: No free air under the diaphragm. IMPRESSION: Mild patchy bibasilar opacities, which may represent atelectasis or infection in the [facility] clinical setting. No evidence of lobar pneumonia. Signed by: Dr. Cory Marin MD on 02/21/2020 3:58 PM Dictated By: HALLE MARIN MD Electronica lly Signed By: HALLE MARIN MD on 02/21/201557 Transcribed By: ANNIE on 1557 COPY TO: JUANITO VERDUZCO MD CT BRAIN [id number] 14:49:[address] [address] Patient Name: TANIA GIBSON MR #: [id number] : 1965 Age/Sex: 54/F Req #: [id number] Adm Physician: Ordered by: JUANITO VERDUZCO MD Re port #: [id number] Location: ER Room/ Bed: Procedure: [id number] CT/CT BRAIN W O Exam Date: 02/21/20 Exam Time: 1435 REPORT STATUS: Signed CT BRAIN WO HISTORY : Dizziness COMPARISON: None. TECHNIQUE: Noncontrast axial scans w ere obtained from skull base to the vertex. Coronal and sagittal reconstructi ons obtained from the axial data. One or more of the following dose reduction techniques were used: Automated exposure control, adjustment of the mA and/or kV according to patient size, and/or utilization of iterative reconstruction technique. DISCUSSION: Scalp/Skull: Unremarkable. Brain sulci: Appro priate for patient's age. Ventricles: Normal in size and configuration. No hy drocephalus. Extra-axial spaces: No masses or fluid collections. Par enchyma: No abnormal densities. No mass, hemorrhage, or large vascular terr itory acute infarct. Dural sinuses: No abnormal densities. Sellar/Supras ellar region: Intact. Skull base: Intact. Incidental findings: None. IM PRESSION: No intracranial abnormalities. Signed by: Dr. Santi harrington M.D. on 02/21/2020 2:55 PM Dictated By: SANTI MUSA MD Elect ronically Signed By: SANTI MUSA MD on 02/21/201454 Transcribed By: TORRIE OVIEDO on 02/21/201454 COPY TO: JUANITO VERDUZCO MD Prothrombin time (PT) in platelet poor plasma by coagulation wkccf2903-67-05 13:42:00* Test Item Value Reference Range Interpretation Comments Prothrombin Time (test code = 5902-2) 12.5 11.9-14.5 [facility]ennialINR in Platelet poor plasma by Coagulation bpaqz4997-26-54 13:42:00* Test Item Value Reference Range Interpretation Comments Prothromb Time International Ratio (test code = 6301-6) 0.89 Oral Anticoagulant Therapy INR Values:1. Low Intensity Therapy 1.5 - 2.02 . Moderate Intensity Therapy 2.0 - 3.03. High Intensity Therapy(1) 2.5 - 3. 54. High Intensity Therapy(2) 3.0 - 4.05. Panic Value INR > 5.0 [facility]ennialActivated partial thromboplastin time (aPTT) in platelet poor plasma by coagulation wpdme3966-57-09 13:42:00* Test Item Value Reference Range Interpretation Comments Activated Partial Thromboplast Time (test code = 14711-1) 29.5 23.8-35.5 [facility] CentennialBNP Wej-fEps7253-37-25 13:42:00* Test Item Value Reference Range Interpretation Comments B-Type Natriuretic Peptide (test code = 50186-1) 13.4 0-100 [facility] 2019-08-01 11:15:17 - SCR MAMM BILATERAL BILL CAD DIGITALBILATERAL DIGITAL SCREENING MAMMOGRAM 3D/2D WITH CAD: 07/31/2019CLINICAL: Asymptomatic. Digital breast tomosynthesis was performed in addition to routine CC and MLO views. Current mammographic images were evaluated by either a CallAround M-Vu or a Meet[employer] ImageChecker CAD (computer aided detection system). Comparison is made to exams dated 04/16/2018 mammogram - [facility], 05/18/2015 mammogram, and 02/24/2014 mammogram - [facility]. The tissue of both breasts is heterogeneously dense. This may lower the sensitivity of mammography. No suspicious mass, architectural distortion, malignant type calcification, or lymph node abnormality detected. Breast architecture is stable compared to prior exams.IMPRESSION: NEGATIVEThere is no mammographic evidence of malignancy. Resume annual screening mammography in one year. Noel Borges M.D. ss/penrad:08/01/2019 11:15:17 Thermoscrew Operator: Shirley GUADALUPE, [facility] sent: BIRADS 1-2 Normal Mammogram BI-RADS: 1 NegativeCYSTOGRAM 3+NEOMB0823-24-57 13:13:00 [address] [address] Patient Name: TANIA GIBSON MR #: [id number] : 1965 Age/Sex: 53/F Req #: [id number] Adm Physician: Ordered by: YANIRA MILLER MD Report #: [id number] Location: DX Room/Bed: Procedure: [id number] DX/ CYSTOGRAM 3+VIEWS Exam Date: 06/06/19 Exam Time: 114 0 REPORT STATUS: Signed EXAM: F L RETROGRADE CYSTOGRAM INDICATION: Bladder rupture COMPARISON: None availa ble. Performing physician: David Mensah MD FINDINGS: CLOTH DOFFER: The bowel gas pattern is non-obstructive. Multiple bilateral pelvic phleboliths n oted BLADDER: Cysto conray contrast was instilled into the bladder by gravi ty via the indwelling Major catheter. The bladder fills with contrast and ther e is no evidence of leak or intraluminal filling defect to suggest mass or thr ombus. Fluoroscopy Time: 0.5 minutes Radiation dose: 11.2 mGy I MPRESSION: Retrograde cystogram demonstrating no evidence of leak. Major cath eter was successfully removed after the exam. Signed by: David Mensah MD o n 06/06/2019 1:15 PM Dictated By: DAVID MENSAH MD 14 Transcribed By: ANNIE on 06/06/191314 COPY TO: YANIRA MILLER MD SURGICAL [id number] 07:47:00 RUN DATE: 05/28/19 [facility] *LIVE* PAGE 1 RUN TIME: 746 Specimen Inqui ry RUN USER: INTERFACE PATIENT: TANIA GIBSON ACCT #: [id number] LOC: JacobMSEllen U #: [id number] AGE/SX: 53/F ROOM: [facility] RE05/23/19MARIAM DR: Yanira Miller : [birth year] BED: 1 DIS: 05/24/19 STATUS: DIS Karen TLOC: SPEC #: [id number] RECD: 05/26/19 STATUS: FACUNDO RESavi #: [id number] MARY: 05/26/[address]: Yanira Miller ENTERED: 05/27/19 SP TYPE: SURG SPEC OTHR DR: Larry Kamara MD ORDERED: GM LEVEL 4 CODES: [id number] - UTERUS, NOS COPIES TO: Yanira Terry MD [address] [place] [address] Larry Gonzalez MD [address] [address] PROCEDURES: GM LEVEL 4 (Incomplete) TISSUES: 1. UTERUS, NOS - Uterus, cervix, bilateral tubes and ovar FINAL DIAGNOSIS Cervix uteri: Chr onic cervicitis, squamous metaplasia, nabothian cysts. Endometrium: Basal state; endometrial polyp. Corpus uteri: Leiomyomata, lipoleiomyoma, adenom yosis, fibrous serosal adhesions. Adnexa, bilateral: Small serous cysts , paratubal cysts, and small adenofibroma. GROSS AND MICROSCOPIC JESUS S EXAMINATION: Received the specimen as designated above and it consis ts of a uterus with attached bilateral adnexa that weighs 221 g. The uterus m easures 9.5 x 6.7 x 7 cm with multiple serosal burkett-white nodules measure up to 6.4 cm in largest dimension. The right ovary measures 2.2 cm, right tube 7 x 0.5 cm and left ovary 2.5 cm, left tube 5 x 0.6 cm with one paratubal cyst measuring 1 cm. The endometrium measures 0.2 cm, myometrium 3.5 cm with mult iple burkett-white nodules measure up to 5.9 cm. Sections are submitted as (A)-r ight adnexa; (B)-(I)-left adnexa, cervix and uterus. MICROSCOPIC EXAMINATIO N: The ectocervical mucosa has normal maturation. CONTINUED ON NEXT PAGE RUN DATE: 05/28/19 [facility] *LIVE* PAGE 2 RUN TIME: 746 Specimen Inquiry RUN USER: INTERFACE SPEC #: [id number] PATIENT: TANIA GIBSON #[id number] (Continued)-- GROSS AND MICROSCOPIC (Continued) The endocervical muc estephania has nabothian cysts, areas of squamous metaplasia and associated chronic inflammation. The endometrial glands liam w basal state. One endometrial polyp shows thickwalled blood vessels in the stroma. Benign endometrial glands and st lizzy are present in the myometrium. The myometrial nodule(s) are compose d of bundles of smooth muscle cells with no significant nuclear atypia or mitotic activity. Some of the sections reveal mature adipocytes scatte red among the spindle-shaped cells. The serosa shows fibrous adhesions. Both ovaries show small serous cysts. The righ t tube shows paratubal cyst. The left tube shows paratubal cysts and small ad enofibroma. POST-OP DIAGNOSIS Fibroid uterus P RE-OP DIAGNOSIS Fibroid uterus Signed SIGNATURE ON FILE Himanshu Pantoja MD 05/28/19 0747 END OF REPORT - XR CHEST 2 V 2019-05-21 09:51:00 FAX: Yanira Mosquera MD [phone] [place]: St: PRE FAX: Larry Cassidy MD [phone] Name: ARTHURTANIAMoreno KELSEY [facility] : 1965 Age/S: 53/F [address] [place] [address] Unit #: [id number] Loc: [facility] [address] Phys: Yanira Miller MD Acct: [id number] Dis Date: Status: PRE SDC PHONE #: [phone] Exam Date: 05/21/2019 0945 FAX #: [phone] Reason: PREOP ROBOTIC TLH BSO EXAMS: CPT CODE: [id number] XR CHEST 2 V 82859 CHEST RADIOGRAPHS - PA AND LATERAL: COMPARISON: None CLINICAL HISTORY: PREOP ROBOTIC TLH BSO The cardiopericardial silhouette is within normal limits. Lungs are clear. No vascular congestion or pneumothorax. There is mild S-shaped curvature of the thoracic spine. IMPRESSION: No acute pulmonary abnormality. at 0951 Reported and signed by: Biju Leo M.D. CC: Yanira Miller MD; Larry Koo Kareem Technologist: RT Rob(Jeff) Trnscrd Date/Time/By: 05/21/2019 (0951) : By: [email or web address] Orig Print D/T: S: 05/21/2019 (0916) PAGE 1 Signed Report COMPREHENSIVE METABOLIC [id number] 09:15:00* Test Item Value Reference Range Interpretation Comments SODIUM (test code = NA) 142 mEq/L 134-147 N POTASSIUM (test code = K) 3.7 mEq/L 3.4-5.0 N CHLORIDE (test code = CL) 108 mEq/L 100-108 N CARBON DIOXIDE (test code = CO2) 29 mEq/L 21-33 N ANION GAP (test code = GAP) 9 0-20 N GLUCOSE (test code = GLU) 89 mg/dL 70-110 N BLOOD UREA NITROGEN (test code = BUN) 10 mg/dL 7-18 N GLOMERULAR FILTRATION RATE (test code = GFR) 86.9 90-95 L Units of measure = ml/min/1.73 m2 CREATININE (test code = CREAT) 0.7 mg/dL 0.6-1.3 N TOTAL PROTEIN (test code = PROT) 8.5 g/dL 6.4-8.2 H ALBUMIN (test code = ALB) 4.00 g/dL 3.4-5.0 N CALCIUM (test code = CA) 8.8 mg/dL 8.0-10.5 N BILIRUBIN TOTAL (test code = BILT) 0.4 MG/DL <1.5 N SGOT/AST (test code = AST) 16 IUnit/L 15-37 N SGPT/ALT (test code = ALT) 34 IUnit/L 15-65 N ALKALINE PHOSPHATASE TOTAL (test code = ALKP) 82 IUnit/L 20-125 N HCG SERUM [id number] 09:15:00* Test Item Value Reference Range Interpretation Comments HCG SERUM QUAL (test code = HCGQL) SERUM NEGATIVE NEGATIVE COMPREHENSIVE METABOLIC [id number] 09:01:00* Test Item Value Reference Range Interpretation Comments SODIUM (test code = NA) mEq/L 134-147 POTASSIUM (test code = K) mEq/L 3.4-5.0 CHLORIDE (test code = CL) mEq/L 100-108 CARBON DIOXIDE (test code = CO2) mEq/L 21-33 ANION GAP (test code = GAP) 0-20 GLUCOSE (test code = GLU) mg/dL 70-110 BLOOD UREA NITROGEN (test code = BUN) mg/dL 7-18 GLOMERULAR FILTRATION RATE (test code = GFR) 90-95 CREATININE (test code = CREAT) mg/dL 0.6-1.3 TOTAL PROTEIN (test code = PROT) g/dL 6.4-8.2 ALBUMIN (test code = ALB) g/dL 3.4-5.0 CALCIUM (test code = CA) mg/dL 8.0-10.5 BILIRUBIN TOTAL (test code = BILT) MG/DL <1.5 SGOT/AST (test code = AST) IUnit/L 15-37 SGPT/ALT (test code = ALT) IUnit/L 15-65 ALKALINE PHOSPHATASE TOTAL (test code = ALKP) IUnit/L 20-125 HCG SERUM [id number] 09:01:00* Test Item Value Reference Range Interpretation Comments HCG SERUM QUAL (test code = HCGQL) SERUM NEGATIVE NEGATIVE PROTHROMBIN [id number] 08:52:00* Test Item Value Reference Range Interpretation Comments PROTHROMBIN TIME PATIENT (test code = PTP) 11.3 SECONDS 9.3-12.9 N INTERNATIONAL NORMAL RATIO (test code = INR) 1.0 0.8-1.2 N TARGET INR BY INDICATION Indication INR1. Prophylaxis of venous thrombosis 2.0 - 3.0 (orthopedic surgery), Prophylaxis of venous thrombosis (other than high-risk surgery), Treatment of Deep Vein Thrombosis/Pulmonary Embolism, Prevention of systemic embolism - Tissue heart valves, Acute Myocardial Infarction (to prevent systemic embolism), Valvular heart disease, Atrial Fibrillation, Bileaflet mechanical valve in aortic position.2. Mechanical prosthetic valves (high risk), 2.5 - 3.5 Presence of Lupus Anticoagulant or Antiphospholipid Antibodies, Prevention of systemic embolism - Acute Myocardial Infarction (to prevent recurrent infarct). THROMBOPLASTIN TIME [id number] 08:52:00* Test Item Value Reference Range Interpretation Comments THROMBOPLASTIN TIME PARTIAL (test code = PTT) 38.5 Seconds 25.0-39. 5 N Therapeutic Range: 50.4 - 88.3 Seconds Effective 11/12/2018 CBC W/AUTO [id number] 08:45:00* Test Item Value Reference Range Interpretation Comments WHITE BLOOD CELL (test code = WBC) 6.96 x10 3/uL 4.5-11.0 N RED BLOOD CELL (test code = RBC) 4.12 x10 6/uL 3.54-5.02 N HEMOGLOBIN (test code = HGB) 13.4 g/dL 11.0-15.0 N HEMATOCRIT (test code = HCT) 39.0 % 33.0-45.0 N MEAN CELL VOLUME (test code = MCV) 94.7 fL 81.0-99.0 N MEAN CELL HGB (test code = MCH) 32.5 pg 27.0-33.0 N MEAN CELL HGB CONCETRATION (test code = MCHC) 34.4 g/dL 33.0-37. 0 N RED CELL DISTRIBUTION WIDTH CV (test code = RDW) 12.6 % 11.5- 14.5 N RED CELL DISTRIBUTION WIDTH SD (test code = RDW-SD) 43.8 fL 37 .0-54.0 N PLATELET COUNT (test code = PLT) 289 x10 3/uL 150-400 N MEAN PLATELET VOLUME (test code = MPV) 10.7 fL 7.0-9.0 H NEUTROPHIL % (test code = NT%) 62.4 % 56.0-77.0 N IMMATURE GRANULOCYTE % (test code = IG%) 0.1 % 0.0-2.0 N LYMPHOCYTE % (test code = LY%) 26.4 % 14.0-32.0 N MONOCYTE % (test code = MO%) 8.0 % 4.8-9.0 N EOSINOPHIL % (test code = EO%) 2.7 % 0.3-3.7 N BASOPHIL % (test code = BA%) 0.4 % 0.0-2.0 N NUCLEATED RBC % (test code = NRBC%) 0.0 % 0-0 N NEUTROPHIL # (test code = NT#) 4.33 x10 3/uL 2.0-7.6 N IMMATURE GRANULOCYTE # (test code = IG#) 0.01 x10 3/uL 0.00-0.03 N LYMPHOCYTE # (test code = LY#) 1.84 x10 3/uL 1.0-3.8 N MONOCYTE # (test code = MO#) 0.56 x10 3/uL 0.1-0.8 N EOSINOPHIL # (test code = EO#) 0.19 x10 3/uL 0.0-0.2 N BASOPHIL # (test code = BA#) 0.03 x10 3/uL 0.0-0.2 N NUCLEATED RBC # (test code = NRBC#) 0.00 x10 3/uL 0.0-0.1 N MANUAL DIFF REQUIRED (test code = MDIFF) NO
[2020-03-04 17:03] LABS: THYROID STIMULATING HORMONE 1.557 uIU/mL (0.350-4.940)
--- NOTE | 2020-03-04 17:12 | Emergency Department Note ---
History of Present Illnes History of Present Illness Chief Complaint: General Medicine Complaints History of Present Illness This is a 54 year old female arrives to the ED with complaints of chest pain generalized malaise. 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 Arrival Mode: Car Critical Care Technician Required: No Past Medical/Family History Physician Review I have reviewed the patient's past medical and family history. Any updates have been documented here. Past Medical History Recent Fever: No Clinical Suspicion of Infectio: No New/Unexplained Change in Ment: No Past Medical History: Hypertension, GERD Past Surgical History: Hysterectomy, Review of Systems Review of Systems Constitutional: Reports no symptoms EENTM: Reports no symptoms Cardiovascular: Reports as per HPI, Reports chest pain Respiratory: Reports no symptoms Gastrointestinal: Reports no symptoms Genitourinary: Reports no symptoms Musculoskeletal: Reports no symptoms Integumentary: Reports no symptoms Neurological: Reports no symptoms Psychological: Reports no symptoms Endocrine: Reports no symptoms Hematological/Lymphatic: Reports no symptoms Physical Exam Related Data Allergies: Coded Allergies: aspirin (Verified Allergy, Unknown, 02/21/20) Triage Vital Signs Vital Signs Date Time Temp Pulse Resp B/P (MAP) Pulse Ox O2 Delivery O2 Flow Rate FiO2 03/04/20 15:32 98.7 94 16 157/93 98 Room Air Vital signs reviewed: Yes Physical Exam CONSTITUTIONAL Constitutional: Present well-developed, Present well-nourished HENT HENT: Present normocephalic, Present atraumatic, Present oropharynx clear/moist, Present nose normal HENT L/R: Present left ext ear normal, Present right ext ear normal EYES Eyes: Reports PERRL, Reports conjunctivae normal NECK Neck: Present ROM normal PULMONARY Pulmonary: Present effort normal, Present breath sounds normal CARDIOVASCULAR Cardiovascular: Present regular rhythm, Present heart sounds normal, Present capillary refill normal, Present normal rate GASTROINTESTINAL Abdominal: Present soft, Present nontender, Present bowel sounds normal GENITOURINARY Genitourinary: Present exam deferred SKIN Skin: Present warm, Present dry MUSCULOSKELETAL Musculoskeletal: Present ROM normal NEUROLOGICAL Neurological: Present alert, Present oriented x 3, Present no gross motor or sensory deficits PSYCHOLOGICAL Psychological: Present mood/affect normal, Present judgement normal Results Laboratory Result Diagram: 03/04/20 1540 03/04/20 1540 Laboratory Laboratory Tests Test 03/04/20 15:40 03/04/20 15:00 White Blood Count 9.17 x10e3/uL (4.8-10.8) Red Blood Count 4.08 x10e6/uL (3.6-5.1) Hemoglobin 13.2 g/dL (12.0-16.0) Hematocrit 38.4 % (34.2-44.1) Mean Corpuscular Volume 94.1 fL (81-99) Mean Corpuscular Hemoglobin 32.4 pg (28-32) Mean Corpuscular Hemoglobin Concent 34.4 g/dL (31-35) Red Cell Distribution Width 11.9 % (11.7-14.4) Platelet Count 312 x10e3/uL (140-360) Neutrophils (%) (Auto) 76.2 % (38.7-80.0) Lymphocytes (%) (Auto) 14.5 % (18.0-39.1) Monocytes (%) (Auto) 7.5 % (4.4-11.3) Eosinophils (%) (Auto) 1.2 % (0.0-6.0) Basophils (%) (Auto) 0.3 % (0.0-1.0) Neutrophils # (Auto) 7.0 (2.1-6.9) Lymphocytes # (Auto) 1.3 (1.0-3.2) Monocytes # (Auto) 0.7 (0.2-0.8) Eosinophils # (Auto) 0.1 (0.0-0.4) Basophils # (Auto) 0.0 (0.0-0.1) Absolute Immature Granulocyte (auto 0.03 x10e3/uL (0-0.1) Sodium Level 139 mmol/L (136-145) Potassium Level 3.9 mmol/L (3.5-5.1) Chloride Level 106 mmol/L (98-107) Carbon Dioxide Level 24 mmol/L (22-29) Anion Gap 12.9 mmol/L (8-16) Blood Urea Nitrogen 13 mg/dL (7-26) Creatinine 0.79 mg/dL (0.57-1.11) Estimat Glomerular Filtration Rate > 60 ML/MIN (60-) BUN/Creatinine Ratio 16 (6-25) Glucose Level 116 mg/dL (74-118) Calcium Level 9.9 mg/dL (8.4-10.2) Total Bilirubin 0.4 mg/dL (0.2-1.2) Aspartate Amino Transf (AST/SGOT) 23 IU/L (5-34) Alanine Aminotransferase (ALT/SGPT) 32 IU/L (0-55) Alkaline Phosphatase 78 IU/L (40-150) Creatine Kinase 52 IU/L (29-168) Total Protein 8.5 g/dL (6.5-8.1) Albumin 4.3 g/dL (3.5-5.0) Globulin 4.2 g/dL (2.3-3.5) Albumin/Globulin Ratio 1.0 (0.8-2.0) Urine Color Yellow (YELLOW) Urine Clarity Clear (CLEAR) Urine pH 7 (5 - 7) Urine Specific [place] 1.010 (1.010-1.025) Urine Protein Negative (NEGATIVE) Urine Glucose (UA) Negative (NEGATIVE) Urine Ketones Negative (NEGATIVE) Urine Blood Trace (NEGATIVE) Urine Nitrite Negative (NEGATIVE) Urine Bilirubin Negative (NEGATIVE) Urine Urobilinogen 0.2 mg/dL (0.2 - 1) Urine Leukocyte Esterase Negative (NEGATIVE) Urine RBC 0-5 /HPF (0-5) Urine WBC None /HPF (0-5) Urine Epithelial Cells None /LPF (NONE) Urine Bacteria None /HPF (NONE) Lab results reviewed: Yes Imaging Imaging results reviewed: Yes Procedures 12 Lead ECG Interpretation ECG Interpretation : ECG: ECG 1 Critical Care Technician: Interpreted by ED physician Rhythm: sinus rhythm Rate: normal QRS axis: normal ST segments normal: Yes T waves normal: Yes Clinical Impression: non-specific ECG Assessment & Plan Medical Decision Making MDM 54 year female arrived to the ED with complaints of chest pain, intermediate heart score. Patient admitted for cardiac evaluation and serial troponin. Assessment & Plan Final Impression: (1) Chest pain Depart Disposition: HOME, SELF-CARE Last Vital Signs Date Time Temp Pulse Resp B/P (MAP) Pulse Ox O2 Delivery O2 Flow Rate FiO2 03/04/20 15:32 98.7 94 16 157/93 98 Room Air Home Meds Reported Medications Losartan Potassium (LOSARTAN POTASSIUM) 100 Mg Tablet, 100 MG PO DAILY, TAB 03/04/20 Discontinued Reported Medications Aspirin (ASPIRIN) 81 Mg Tab.chew, 81 MG PO DAILY 03/04/20 Magnesium Oxide (MAGNESIUM OXIDE) 400 Mg Tablet, 400 MG PO BID, TAB 02/22/20 Lisinopril (LISINOPRIL) 10 Mg Tablet, 10 MG PO DAILY, #30 TAB 02/22/20 RAMEZ GRIFFITH, Mar 04, 2020 17:12
--- OUTSIDE RECORDS SUMMARY | 2020-03-04 17:36 | XMS REPORT | Continuity of Care Document ---
Author Author [facility] t Organization [facility] Address [address] [place] [address] Phone Unavailable Care Team Providers Care Varitype Operator Name Role Phone MD KAREEM PCP ANDREW BURTON Attphys Unavailable DAFASHYANIRA Casas Attphys Unavailable ANDREW BURTON Admphys Unavailable Payers Payer Name Policy Type Policy Number Effective Date Expiration Date Dung Prasad Pos [id number] 2017 00:00:00 [facility] Problems Condition Name Condition Details Condition Category Status Onset Date Resolution Date Last Treatment Date Treating Clinician Comments Source Chest pain Problem Active [facility] Palpitations Problem Active [facility] Pre-syncope Problem Active [facility] Hypokalemia Problem Active [facility] Allergies, Adverse Reactions, Alerts Allergy Name Allergy Type Status Severity Reaction(s) Onset Date Inacti ve Date Treating Clinician Comments Source Aspirin Allergy to substance Active 2020-02-21 00:00:00 [facility] aspirin DA Active [place] 2019-05-21 00:00:00 [facility] ASPIRIN DA Active U 2008-03-09 00:00:00 [facility] No Known Contrast Allergies DA Active U 2008-03-09 00:00: 00 [facility] No Known Food Allergies DA Active U 2008-03-09 00:00:00 [facility] No Known Other Allergies DA Active U 2008-03-09 00:00:00 [facility] Social History Social Habit Start Date Stop Date Quantity Comments Source Sex Assigned At 1965 00:00:00 1965 00:00:00 Female [facility] Medications Ordered Medication Name Filled Medication Name Start Date Stop Da te Current Medication? Ordering Clinician Indication Dosage Frequency Signature (SIG) Comments Components Source Lisinopril Lisinopril Yes 10 Daily [facility] Magnesium Oxide Magnesium Oxide Yes 400 Twice A Day [facility] Losartan Potassium Losartan Potassium 2020-02-22 00:00:00 No 100 Daily [facility] Vital Signs Vital Name Observation Time Observation Value Comments Source Body Temperature 2020-02-22 09:31:00 98.2 [degF] [facility] BMI (Body Mass Index) 2020-02-22 00:08:00 22.3 kg/m2 [facility] Weight 2020-02-21 13:28:00 130 [lb_av] [facility] Procedures Procedure Date / Time Performed Performing Clinician [facility] e Computed tomography of brain without radiopaque contrast 2020-01 00:00:00 [facility] Computed tomography of chest without contrast 2020-02-21 00:00:0 0 [facility] Plan of Care Planned Activity Planned Date Details Comments Source Instructions COVID-19: 10/13/2019 [facility] Instructions Chest Pain - Noncardiac [facility] Instructions Hypokalemia [facility] Encounters Start Date/Time End Date/Time Encounter Type Admission Type [facility] Care Department Encounter ID Source 2020-02-21 16:32:00 2020-02-21 16:32:00 Admitted Inpatient (obs) [address] [facility] [id number] [facility] 2019-06-06 09:42:00 2019-06-06 09:42:00 Registered Clinic 3 YANIRA MILLER [facility] [id number] [facility] Results Test Description Test Time Test Comments Results Result Comments Source Blood leukocytes automated count (number/volume) 2020-02-22 07:31:00 Test Item White Blood Count (test code = 6690-2) 8.81 4.8-10.8 [facility] count (number/volume)2020-02-22 07:31:00* Test Item Value Reference Range Interpretation Comments Red Blood Count (test code = 789-8) 3.54 3.6-5.1 [facility] measurement (moles/volume)2020-02-22 07:31:00* Test Item Value Reference Range Interpretation Comments Hemoglobin (test code = 12694-1) 11.7 12.0-16.0 [facility] hematocrit (volume fraction)2020-02-22 07:31:00* Test Item Value Reference Range Interpretation Comments Hematocrit (test code = 4544-3) 33.5 34.2-44.1 [facility] mean corpuscular ugxzgm5369-16-45 07:31:00* Test Item Value Reference Range Interpretation Comments Mean Corpuscular Volume (test code = 787-2) 94.6 81-99 [facility] mean corpuscular hemoglobin (mass per erythrocyte)2020-02-22 07:31:00* Test Item Value Reference Range Interpretation Comments Mean Corpuscular Hemoglobin (test code = 785-6) 33.1 28-32 [facility] mean corpuscular hemoglobin concentration measurement (mass/volume)2020-02-22 07:31:00* Test Item Value Reference Range Interpretation Comments Mean Corpuscular Hemoglobin Concent (test code = 786-4) 34.9 31-35 [facility] HospitalRDW JbzDu-Zqa3399-83-26 07:31:00* Test Item Value Reference Range Interpretation Comments Red Cell Distribution Width (test code = 53477-0) 12.3 11.7 -14.4 [facility] platelet count (count/volume)2020-02-22 07:31:00* Test Item Value Reference Range Interpretation Comments Platelet Count (test code = 777-3) 250 140-360 [facility] segmented neutrophil count as percentage of total dknlarjmpg5463-15-31 07:31:00* Test Item Value Reference Range Interpretation Comments Neutrophils (%) (Auto) (test code = 10611-1) 66.7 38.7-80.0 [facility] lymphocyte count as percentage ot total ppclxdprdf9374-81-48 07:31:00* Test Item Value Reference Range Interpretation Comments Lymphocytes (%) (Auto) (test code = 736-9) 23.0 18.0-39.1 [facility] monocyte count as percentage of total avsilkzvto6009-94-12 07:31:00* Test Item Value Reference Range Interpretation Comments Monocytes (%) (Auto) (test code = 5905-5) 7.7 4.4-11.3 [facility] blood eosinophil count as percentage of total nvbfpbldxm2506-01-41 07:31:00* Test Item Value Reference Range Interpretation Comments Eosinophils (%) (Auto) (test code = 713-8) 1.9 0.0-6.0 [facility] basophil count as percentage of total norhsazkpq6420-70-30 07:31:00* Test Item Value Reference Range Interpretation Comments Basophils (%) (Auto) (test code = 706-2) 0.5 0.0-1.0 [facility] HospitalFluoroscopic procedure less than one hour qpoqzyhf3659-21-38 07:31:00* Test Item Value Reference Range Interpretation Comments IM GRANULOCYTES % (test code = IM GRANULOCYTES %) 0.2 0.0- 1.0 [facility] neutrophil count 2020-02-22 07:31:00* Test Item Value Reference Range Interpretation Comments Neutrophils # (Auto) (test code = 751-8) 5.9 2.1-6.9 [facility] lymphocytes count (number/volume) 2020-02-22 07:31:00* Test Item Value Reference Range Interpretation Comments Lymphocytes # (Auto) (test code = 93878-7) 2.0 1.0-3.2 [facility] monocytes automated count (number/volume)2020-02-22 07:31:00* Test Item Value Reference Range Interpretation Comments Monocytes # (Auto) (test code = 742-7) 0.7 0.2-0.8 [facility] blood eosinophil count 2020-02-22 07:31:00* Test Item Value Reference Range Interpretation Comments Eosinophils # (Auto) (test code = 711-2) 0.2 0.0-0.4 [facility] HospitalAutom[facility] blood basophil count (count/volume)2020-02-22 07:31:00* Test Item Value Reference Range Interpretation Comments Basophils # (Auto) (test code = 704-7) 0.0 0.0-0.1 [facility] HospitalFluoroscopic procedure less than one hour oltnkcrj5091-76-45 07:31:00* Test Item Value Reference Range Interpretation Comments Absolute Immature Granulocyte (auto (oxana t code = Absolute Immature Granulocyte (auto) 0.02 0-0.1 [facility] sodium measurement (moles/volume)2020-02-22 07:31:00* Test Item Value Reference Range Interpretation Comments Sodium Level (test code = 2951-2) 140 136-145 [facility] plasma potassium measurement (moles/volume)2020-02-22 07:31:00* Test Item Value Reference Range Interpretation Comments Potassium Level (test code = 2823-3) 4.3 3.5-5.1 [facility] or plasma chloride measurement (moles/volume)2020-02-22 07:31:00* Test Item Value Reference Range Interpretation Comments Chloride Level (test code = 2075-0) 112 98-107 [facility] or plasma carbon dioxide, total measurement (moles/volume)2020-02-22 07:31:00* Test Item Value Reference Range Interpretation Comments Carbon Dioxide Level (test code = 2028-9) 21 22-29 [facility] or plasma anion yag7104-76-61 07:31:00* Test Item Value Reference Range Interpretation Comments Anion Gap (test code = 17189-5) 11.3 8-16 [facility] plasma urea nitrogen measurement (mass/volume)2020-02-22 07:31:00* Test Item Value Reference Range Interpretation Comments Blood Urea Nitrogen (test code = 3094-0) 11 7-26 [facility] or plasma creatinine measurement (mass/volume)2020-02-22 07:31:00* Test Item Value Reference Range Interpretation Comments Creatinine (test code = 2160-0) 0.83 0.57-1.11 [facility] or plasma urea nitrogen/creatinine mass kouvk1332-98-77 07:31:00* Test Item Value Reference Range Interpretation Comments BUN/Creatinine Ratio (test code = 3097-3) 13 6-25 [facility] HospitalEstimated glomerular filtration rate (GFR) nflgwezctewvr9682-56-46 07:31:00* Test Item Value Reference Range Interpretation Comments Estimat Glomerular Filtration Rate (test code = 971560594) > 60 >60 Ranges were taken from the National Kidney Disease Education Program and the April [facility] Kid[facility] Foundation literature.Reference ranges:60 or greater: Nrlgvm51-57 ( for 3 consecutive months): Chronic kidney disease 15 or less: Kidney failureColumbus Community HospitalGlucose luzxpreccbv2103-08-15 07:31:00* Test Item Value Reference Range Interpretation Comments Glucose Level (test code = LTT2400) 94 74-118 [facility] plasma calcium measurement (mass/volume)2020-02-22 07:31:00* Test Item Value Reference Range Interpretation Comments Calcium Level (test code = 82870-8) 8.8 8.4-10.2 [facility] HospitalPhosphorus vqxhciwbbgr5389-61-85 07:31:00 * Test Item Value Reference Range Interpretation Comments Phosphorus Level (test code = CZF1119) 2.9 2.3-4.7 [facility] or plasma magnesium measurement (mass/volume)2020-02-22 07:31:00* Test Item Value Reference Range Interpretation Comments Magnesium Level (test code = 22714-6) 2.1 1.3-2.1 [facility] or plasma total bilirubin measurement (mass/volume)2020-02-22 07:31:00* Test Item Value Reference Range Interpretation Comments Total Bilirubin (test code = 1975-2) 0.5 0.2-1.2 [facility] HospitalFluoroscopic procedure less than one hour qjqabmtc8132-39-21 07:31:00* Test Item Value Reference Range Interpretation Comments Aspartate Amino Transf (AST/SGOT) (test code = Aspartate Amino Transf (AST/SGOT)) 20 5-34 [facility] or plasma alanine aminotransferase measurement (enzymatic activity/volume)2020-02-22 07:31:00* Test Item Value Reference Range Interpretation Comments Alanine Aminotransferase (ALT/SGPT) (test code = 1742-6) 31 0-55 [facility] or plasma protein measurement (mass/volume)2020-02-22 07:31:00* Test Item Value Reference Range Interpretation Comments Total Protein (test code = 2885-2) 7.0 6.5-8.1 [facility] or plasma albumin measurement (mass/volume)2020-02-22 07:31:00* Test Item Value Reference Range Interpretation Comments Albumin (test code = 1751-7) 3.5 3.5-5.0 [facility] HospitalPlasma globulin measurement (mass/volume) 2020-02-22 07:31:00* Test Item Value Reference Range Interpretation Comments Globulin (test code = 40816-6) 3.5 2.3-3.5 [facility] or plasma albumin/globulin mass arnrr2128-01-45 07:31:00* Test Item Value Reference Range Interpretation Comments Albumin/Globulin Ratio (test code = 1759-0) 1.0 0.8-2.0 [facility] or plasma alkaline phosphatase measurement (enzymatic activity/volume)2020-02-22 07:31:00* Test Item Value Reference Range Interpretation Comments Alkaline Phosphatase (test code = 6768-6) 55 40-150 [facility] plasma triglyceride measurement (mass/volume)2020-02-22 07:31:00* Test Item Value Reference Range Interpretation Comments Triglycerides Level (test code = 2571-8) 168 0-149 [facility] or plasma cholesterol measurement (mass/volume)2020-02-22 07:31:00* Test Item Value Reference Range Interpretation Comments Cholesterol Level (test code = 2093-3) 189 0-199 Less than 200 mg/dL Low Owwx219 - 239 mg/dL Borderline Lvvf968 m g/dl and greater High Risk [facility] or plasma cholesterol in LDL measurement (mass/volume) 2020-02-22 07:31:00* Test Item Value Reference Range Interpretation Comments LDL Cholesterol (test code = 2089-1) 116 60-130 [facility] or plasma cholesterol in HDL measurement (mass/volume)2020-02-22 07:31:00* Test Item Value Reference Range Interpretation Comments HDL Cholesterol (test code = 2085-9) 39 40-60 [facility] or plasma total cholesterol/cholesterol in HDL mass aauil2533-26-89 07:31:00* Test Item Value Reference Range Interpretation Comments Cholesterol/HDL Ratio (test code = 9830-1) 4.8 3.0-3.6 [facility] or plasma creatine kinase measurement (enzymatic activity/volume)2020-02-22 07:31:00* Test Item Value Reference Range Interpretation Comments Creatine Kinase (test code = 2157-6) 105 29-168 [facility] or plasma creatine kinase MB measurement (mass/volume)2020-02-22 07:31:00* Test Item Value Reference Range Interpretation Comments Creatine Kinase MB (test code = 60509-5) 1.30 0-5.0 [facility] HospitalTroponin I measurement by highly sensitive enzyme opeqmufvypt8223-87-48 07:31:00* Test Item Value Reference Range Interpretation Comments Troponin I (test code = 92304-0) 0.003 0-0.300 [facility]59 22:12:00 [facility] [address] [address] Patient Name: TANIA GIBSON MR #: [id number] : 1965 Age/Sex: 54/F Req #: [id number] Adm Physician: ANDREW BURTON MD Ordered by: ANDREW BURTON MD Report #: [id number] Location: MED/SURG Room/Bed: [facility] [place] Procedure: [id number] CT/CT CHEST WO Exam Date: 02/21/20 Exam [...] ANDREW BURTON MD CHEST SINGLE (PORTABLE)2020-02-21 15:56:[address] [place] [address] Patient Name: TANIA GIBSON MR #: [id number] : 1965 Age/Sex: 54/F Req #: [id number] Adm Physician: Ordered by: JUANITO VERDUZCO MD Report #: [id number] Location: ER Room/Bed: Procedure: [id number] DX/CHEST SING SETH (PORTABLE) Exam Date: 02/21/20 [...] may represent atelectasis or infection in the [facility] clinical setting. No evidence of lobar pneumonia. Signed by: Dr. Cory Marin MD on 02/21/2020 3:58 PM Dictated By: HALLE MARIN MD Electronica lly Signed By: HALLE MARIN MD on 02/21/201557 Transcribed By: ANNIE on 1557 COPY TO: JUANITO VERDUZCO MD CT BRAIN [id number] 14:49:00 [place] [address] Patient Name: TANIA GIBSON MR #: [id number] : 1965 Age/Sex: 54/F Req #: [id number] Adm Physician: Ordered by: JUANITO VERDUZCO MD Re port #: [id number] Location: ER Room/ Bed: Procedure: [id number] CT/CT BRAIN W O Exam Date: 02/21/20 [...] (PT) in platelet poor plasma by coagulation uimnj9071-66-29 13:42:00* Test Item Value Reference Range Interpretation Comments Prothrombin Time (test code = 5902-2) 12.5 11.9-14.5 [facility] HospitalINR in Platelet poor plasma by Coagulation ymqon3322-76-73 13:42:00* Test Item Value Reference Range Interpretation Comments Prothromb Time International Ratio (test code = 6301-6) 0.89 Oral Anticoagulant Therapy INR Values:1. Low Intensity Therapy 1.5 - 2.02 . Moderate Intensity Therapy 2.0 - 3.03. High Intensity Therapy(1) 2.5 - 3. 54. High Intensity Therapy(2) 3.0 - 4.05. Panic Value INR > 5.0 [facility] HospitalActivated partial thromboplastin time (aPTT) in platelet poor plasma by coagulation jkask5767-81-77 13:42:00* Test Item Value Reference Range Interpretation Comments Activated Partial Thromboplast Time (test code = 61438-4) 29.5 23.8-35.5 [facility] HospitalBNP Qvz-iReo4402-67-25 13:42:00* Test Item Value Reference Range Interpretation Comments B-Type Natriuretic Peptide (test code = 41580-1) 13.4 0-100 [facility] BILATERAL BILL CAD DIGITAL 2019-08-01 11:15:17 - SCR MAMM BILATERAL BILL CAD DIGITALBILATERAL DIGITAL SCREENING MAMMOGRAM 3D/2D WITH CAD: 07/31/2019CLINICAL: Asymptomatic. Digital breast tomosynthesis was performed in addition to routine CC and MLO views. Current mammographic images were evaluated by either a [employer] [place] M-Vu or a [employer] ImageChecker CAD (computer aided detection system). Comparison is made to exams dated 04/16/2018 mammogram - [facility], 05/18/2015 mammogram, and 02/24/2014 mammogram [...] one year. Noel Borges M.D. ss/penrad:08/01/2019 11:15:17 Direct Care Counselor: Shirley GUADALUPE, [facility] sent: BIRADS 1-2 Normal Mammogram BI-RADS: 1 NegativeCYSTOGRAM 3+EQBNZ6741-72-27 13:13:00 [place] [address] Patient Name: TANIA GIBSON MR #: [id number] : 1965 Age/Sex: 53/F Req #: [id number] Adm Physician: Ordered by: YANIRA MILLER MD Report #: [id number] Location: DX Room/Bed: Procedure: [id number] DX/ CYSTOGRAM 3+VIEWS Exam Date: 06/06/19 Exam Time: 114 0 REPORT STATUS: Signed EXAM: F L RETROGRADE CYSTOGRAM INDICATION: Bladder rupture COMPARISON: None availa ble. Performing physician: David Mensah MD FINDINGS: ANALYTICS ANALYST: The bowel gas pattern is non-obstructive. Multiple [...] 06/06/191314 COPY TO: YANIRA MILLER MD SURGICAL [id number] 07:47:00 RUN DATE: 05/28/19 [facility] *LIVE* PAGE 1 RUN TIME: 746 Specimen Inqui ry RUN USER: INTERFACE PATIENT: TANIA GIBSON ACCT #: [id number] LOC: JacobMSEllen U #: [id number] AGE/SX: 53/F [place] [facility] [place]19MARIAM DR: Yanira Miller : [birth year] BED: 1 DIS: 05/24/19 STATUS: DIS Karen TLOC: SPEC #: [id number] RECD: 05/26/19 STATUS: FACUNDO RESavi #: [id number] MARY: 05/26/[address]: Yanira Miller ENTERED: 05/27/19 SP TYPE: SURG SPEC OTHR DR: Larry Kamara MD ORDERED: GM LEVEL 4 CODES: [id number] - UTERUS, NOS COPIES TO: Yanira Terry MD [address] [place] [address] Larry Gonzalez MD [address] [address] PROCEDURES: GM LEVEL 4 (Incomplete) TISSUES: 1. [...] CONTINUED ON NEXT PAGE RUN DATE: 05/28/19 [facility] *LIVE* PAGE 2 RUN TIME: 746 Specimen Inquiry RUN USER: INTERFACE SPEC #: [id number] PATIENT: TANIA GIBSON #[id number] (Continued)-- GROSS AND MICROSCOPIC (Continued) The endocervical [...] V 2019-05-21 09:51:00 FAX: Yanira Mosquera MD [phone] [place]: St: PRE FAX: Larry Cassidy MD [phone] Name: ARTHURTANIAMoreno KELSEY [facility] : 1965 Age/S: 53/F [address] [place] [address] Unit #: [id number] Loc: [place] [address] Phys: Yanira Miller MD Acct: [id number] Dis Date: Status: PRE SDC PHONE #: [phone] Exam Date: 05/21/2019 0945 FAX #: [phone] Reason: PREOP ROBOTIC TLH BSO EXAMS: CPT CODE: [id number] XR CHEST 2 V 40939 CHEST RADIOGRAPHS - PA AND LATERAL: COMPARISON: [...] By: [email or web address] Orig Print D/T: S: 05/21/2019 (0992) PAGE 1 Signed Report COMPREHENSIVE METABOLIC [id number] 09:15:00* Test Item Value Reference Range Interpretation [...] ALKP) 82 IUnit/L 20-125 N HCG SERUM [id number] 09:15:00* Test Item Value Reference Range Interpretation Comments HCG SERUM QUAL (test code = HCGQL) SERUM NEGATIVE NEGATIVE COMPREHENSIVE METABOLIC [id number] 09:01:00* Test Item Value Reference Range Interpretation [...] code = ALKP) IUnit/L 20-125 HCG SERUM [id number] 09:01:00* Test Item Value Reference Range Interpretation Comments HCG SERUM QUAL (test code = HCGQL) SERUM NEGATIVE NEGATIVE PROTHROMBIN [id number] 08:52:00* Test Item Value Reference Range Interpretation [...] Infarction (to prevent recurrent infarct). THROMBOPLASTIN TIME [id number] 08:52:00* Test Item Value Reference Range Interpretation Comments THROMBOPLASTIN TIME PARTIAL (test code = PTT) 38.5 Seconds 25.0-39. 5 N Therapeutic Range: 50.4 - 88.3 Seconds Effective 11/12/2018 CBC W/AUTO [id number] 08:45:00* Test Item Value Reference Range Interpretation [...]
--- NOTE | 2020-03-04 17:48 | Diagnostic Imaging Report ---
EXAMINATION: CT of the abdomen and pelvis without contrast. TECHNIQUE: Helical CT images of the abdomen and pelvis were performed from the lung bases to the lesser trochanters. No intravenous contrast was given per renal stone protocol. Coronal and sagittal reformatted images were obtained. Dose modulation, iterative reconstruction, and/or weight based adjustment of the mA/kV was utilized to reduce the radiation dose to as low as reasonably achievable. COMPARISON: None. CLINICAL HISTORY:Blood in urine DISCUSSION: ABSENCE OF INTRAVENOUS CONTRAST DECREASES SENSITIVITY FOR DETECTION OF FOCAL LESIONS AND VASCULAR PATHOLOGY. ABDOMEN/PELVIS: LOWER THORAX: Unremarkable. HEPATOBILIARY:1.4 similar hypodensity in the left hepatic lobe. Hepatic steatosis. SPLEEN: No splenomegaly. PANCREAS: No focal masses or ductal dilatation. ADRENALS: No adrenal nodules. KIDNEYS/URETERS: No hydronephrosis, stones, or solid mass lesions. PELVIC ORGANS/BLADDER: The bladder is normal. PERITONEUM/RETROPERITONEUM: No free air or fluid. LYMPH NODES: No intra-abdominal,retroperitoneal, pelvic or inguinal lymphadenopathy. VESSELS: The celiac trunk,superior and inferior mesenteric and bilateral renal arteries are patent The portal, superior mesenteric and splenic veins are patent. GI TRACT: No distention or wall thickening. The appendix is normal. BONES AND SOFT TISSUES: No bony destructive lesions. No soft tissue abnormalities. IMPRESSION: No acute CT finding. Hepatic steatosis with a 1.4 cm hypodensity in the left hepatic lobe likely reflective of a cyst. Signed by: Dr. Hernán Blair M.D. on 03/04/2020 5:45 PM
[2020-03-04] MEDS ORDERED: LOSARTAN POTAS100 MG PO (18:35)
[2020-03-04] MEDS ORDERED: ASPIRIN81 MG PO (18:35)
[2020-03-04 18:38] VITALS: BP 138/87
--- NOTE | 2020-03-04 19:31 | NUR ---
Received change of shift report from AM nurse. Walking rounds completed.
[2020-03-04 20:00] VITALS: BP 118/80
[2020-03-04] MEDS ORDERED: ACETAMINOPHEN 325 MG TAB PO PRN (21:30)
[2020-03-04] MEDS ORDERED: ONDANSETRON HCL INJ 2MG/ML 2ML 2 MG/ML VIAL IV PRN (21:30)
[2020-03-04] MEDS ORDERED: ONDANSETRON HCL 4 MG ORAL DISINTEGRATING TAB PO PRN (21:30)
[2020-03-04] MEDS ORDERED: ALPRAZOLAM 0.25 MG TAB PO PRN (21:30)
--- NOTE | 2020-03-04 23:40 | NUR ---
cardiac enzymes drawn and sent to lab.
[2020-03-05] VITALS: BP 99/73
[2020-03-05 00:03] LABS: CREATINE KINASE MB 0.8 ng/mL (0-5.0)
[2020-03-05 04:00] VITALS: BP 95/62
[2020-03-05 05:03] LABS: BASOPHILS % 0.3 % (0.0-1.0); EOSINOPHILS # (AUTO) 0.2 (0.0-0.4); EOSINOPHILS % 2.4 % (0.0-6.0); HEMATOCRIT 36.8 % (34.2-44.1); HEMOGLOBIN 12.5 g/dL (12.0-16.0); LYMPHOCYTES # (AUTO) 2.5 (1.0-3.2); LYMPHOCYTES % 28.5 % (18.0-39.1); MEAN CORPUSCULAR HEMOGLOBIN 32.2 pg (28-32); MEAN CORPUSCULAR VOLUME 94.8 fL (81-99); MONOCYTES # (AUTO) 0.7 (0.2-0.8); MONOCYTES % 7.4 % (4.4-11.3); NEUTROPHILS # (AUTO) 5.4 (2.1-6.9); NEUTROPHILS % 61.2 % (38.7-80.0); PLATELET COUNT 281 x10e3/uL (140-360); RED BLOOD COUNT 3.88 x10e6/uL (3.6-5.1); RED CELL DISTRIBUTION WIDTH 12.1 % (11.7-14.4)
[2020-03-05 05:27] LABS: ALANINE AMINOTRANSFERASE 27 IU/L (0-55); ALBUMIN 3.7 g/dL (3.5-5.0); ALKALINE PHOSPHATASE 62 IU/L (40-150); ANION GAP 12.1 mmol/L (8-16); BLOOD UREA NITROGEN 13 mg/dL (7-26); BUN/CREATININE RATIO 16 (6-25); CALCIUM 9.1 mg/dL (8.4-10.2); CARBON DIOXIDE 27 mmol/L (22-29); CHLORIDE 107 mmol/L (98-107); CREATININE, SERUM 0.82 mg/dL (0.57-1.11); EST GLOMERULAR FILTRATION RATE > 60 ML/MIN (60-); GLUCOSE 93 mg/dL (74-118); POTASSIUM 4.1 mmol/L (3.5-5.1); SODIUM 142 mmol/L (136-145)
--- NOTE | 2020-03-05 07:10 | NUR ---
Patient resting quitly at this time.
--- NOTE | 2020-03-05 07:10 | NUR ---
PT UP IN BED ,DENIES CHEST PAIN,NO DOISTRESS NOTED
[2020-03-05 07:36] VITALS: BP 95/62
[2020-03-05 07:51] LABS: CREATINE KINASE MB 0.8 ng/mL (0-5.0)
[2020-03-05 08:00] VITALS: BP 124/83
[2020-03-05] MEDS ORDERED: ASPIRIN 81 MG CHEW TAB PO SCH (09:00)
[2020-03-05] MEDS ORDERED: LOSARTAN POTASSIUM 100 MG TAB PO SCH (09:00)
[2020-03-05] MEDS ORDERED: MAGNESIUM OXIDE 400 MG TAB PO SCH (09:00)
--- NOTE | 2020-03-05 10:38 | Consultation ---
DATE OF CONSULTATION: 03/05/2020 CHIEF COMPLAINT: Chest pain and weakness. HISTORY OF PRESENT ILLNESS: This is a 54-year-old female with history of hypertension and reflux. The patient presents to [facility] ER with complaints of chest pain and weakness for about a week. Cardiology was consulted to evaluate the patient. The patient is seen in room, reports has had chest pain since February 20 when she was discharged from [facility]. Reports chest pain as a heaviness sensation all over her chest, comes and goes, lasting about 20 minutes, associated with shortness of breath and palpitations, occurs with and without activities. Cardiac enzymes negative thus far. EKG noted without changes, suggestive of acute event. PAST MEDICAL HISTORY: Hypertension and reflux. PAST SURGICAL HISTORY: Hysterectomy and . SOCIAL HISTORY: She is . 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 Denies any tobacco use. Social alcohol use. FAMILY HISTORY: Mother alive, history of hypertension at age 90. Father at age 85 with a history of hypertension and rectal cancer. HOME MEDICATIONS: Include losartan 100 mg daily and aspirin 81 mg daily. ALLERGIES: NO KNOWN ALLERGIES. REVIEW OF SYSTEMS: GENERAL: Denies any weight changes. Positive for fatigue and weakness. Denies any fevers, chills, or night sweats. SKIN: No rashes or bruises. HEENT: Denies any nausea, vomiting, vision change, blurred vision, double vision, epistaxis, sore throat, or swollen neck. CARDIAC: Chest pain as above. Positive for dyspnea on exertion. Denies any orthopnea, PND, or lower extremity edema. RESPIRATORY: Positive for shortness of breath. Denies any wheezing, coughing, or hemoptysis. GI: Reports good appetite. Denies any nausea, vomiting, diarrhea, constipation, melena, tarry or bloody stools. : Denies any frequency, urgency, dysuria, or hematuria. VASCULAR: Denies any lower extremity edema or claudication. MUSCULOSKELETAL: Reports generalized muscle weakness. Denies any joint pains or back pains. NEUROLOGIC: Denies any numbness or tingling. Positive for generalized weakness. Denies any fainting or seizures. HEMATOLOGY: Denies any anemia or bruising. ENDOCRINE: Denies any heat or cold intolerance, polyuria, polydipsia, or polyphagia. PHYSICAL EXAMINATION: VITAL SIGNS: Height 60 inches, weight 132 pounds. Temperature 97.6, pulse 73, respiratory rate 18, blood pressure 124/83, and pulse ox 98% on room air. GENERAL: This is a 54-year-old female, reliable historian, in no acute distress. SKIN: No rashes or bruises noted. HEENT: Normocephalic. Pupils are equal and reactive. Extraocular movements are intact. Trachea midline. No JVD. No carotid bruits. HEART: Regular rate and rhythm. PMI about 4th and 5th intercostal space. LUNGS: Bilateral breath sounds clear to auscultation. Good airway entry and exit. ABDOMEN: Soft, nontender, and nondistended. No organomegaly noted. MUSCULOSKELETAL: Good muscle strength throughout. No lower extremity edema noted. VASCULAR: +2 radial pulses, +2 DP/PT pulses bilaterally. NEUROLOGIC: Cranial nerves 2 through 12 seem intact. LABORATORY DATA: White count 8, hemoglobin 12, hematocrit 36, and platelets 281. Chemistry; sodium 142, potassium 4.1, chloride 107, BUN 13, creatinine 0.8, glucose 93, and magnesium is 2.0. Troponin less than 0.01, next 0.01, next 0.004. TSH 1.5. Lipid panel on 02/22/2020, showing total cholesterol 189, triglycerides 168, LDL 116, and HDL 39. CT abdomen, no acute findings, however, does shows a 1.1 cm left hepatic cyst. EKG showing normal sinus rhythm with a heart rate to be 76. ASSESSMENT: 1. Chest pain. 2. Palpitation. 3. Hypertension. 4. Hyperlipidemia. PLAN: The patient presents to [facility] ER with complaints of chest discomfort and weakness for the past several days. Thus far, cardiac enzymes negative. Discussed with the patient regarding ischemic evaluation. The patient wishes to proceed. We will do TMT and echo today. Continue telemonitoring to evaluate for any occult arrhythmias given history of palpitations. We will continue to follow and adjust cardiac therapy as clinic course dictates. Thank you very much for this consult. Seen and examined Agree with note Dictated by Jose L Jackson NP Nickolas Zhu MD DC/IRLANDA /[id number] ANABEL
[2020-03-05 11:00] VITALS: BP 108/68
--- NOTE | 2020-03-05 12:04 | History and Physical ---
CHIEF COMPLAINT: Generalized weakness, feeling of overwhelming, atypical chest pain, episodic palpitation. HISTORY OF PRESENT ILLNESS: A 54-year-old female, was recently here back on February 21, where she was having some symptoms, but at that time she had hypertensive urgency. She was in stress. Her potassium level was low at 2.8 and generalized weakness, which subsequently resolved after replacement of potassium. The patient did better. She was on lisinopril 10 mg daily. She was given magnesium 4 mg twice a day and the patient went home. 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 The patient went home. She stated that she never really felt any better and the symptom came back with pretty much the same generalized weakness, overwhelming feeling at times and then palpitation. There is no specific chest pain. No diarrhea. No abdominal pain. No headaches. No nausea or vomiting. No radiating pain. No numbness or tingling sensation of any focality. The patient's lab work at this time shown pretty much normal electrolytes. Potassium was 3.9. Her magnesium was 2.0. TSH was 1.5. Liver enzyme is unremarkable and subsequent CBC was also normal as well. The patient is stable. Urinalysis, there was no infection. She had a CT scan of abdomen and pelvis, which shown just incidental finding of a small liver cyst, but otherwise no other significant finding. The patient is pending for further evaluation with Cardiology consultation with Dr. Brian Zhu. PAST MEDICAL HISTORY: Hypertension. PAST SURGICAL HISTORY: Noncontributory. SOCIAL HISTORY: The patient does not smoke or use alcohol. No regular drugs. ALLERGIES: QUESTIONABLE ASPIRIN. HOME MEDICATIONS: 1. Aspirin. 2. Losartan. 3. Magnesium oxide. PHYSICAL EXAMINATION: VITAL SIGNS: Temperature is 98, blood pressure 110/62, pulse rate 80, respirations 20. GENERAL: The patient is not in acute distress. She is awake. HEENT: Normocephalic and atraumatic. Anicteric. NECK: Supple grossly. PULMONARY: Diminished breath sounds without any wheezing or rales. CARDIOVASCULAR: S1, S2. Regular rate and rhythm. ABDOMEN: Soft, nontender, non-distention. EXTREMITIES: No gross cyanosis or edema. NEUROLOGIC: No focal deficit. LABORATORY DATA: Sodium is 142, potassium 4.1, chloride 107, bicarb 27, BUN 13, creatinine 0.8, glucose 93. WBC is 8.8, hemoglobin 12.5, hematocrit 17, platelets 281. TSH is normal at 1.55. Cardiac enzyme, troponin I are normal. Liver enzyme is normal. CT scan of abdomen and pelvis show no acute finding. Hepatic steatosis with 1.4 cm hypodensity in the left hepatic lobe, likely reflect a cyst. IMPRESSION: 1. Possible anxiety disorder with episodic panic attack. However, cardiac issue need to be ruled out. We will have Cardiology see the patient. 2. Possible episodic palpitation/possible cardiac arrhythmia, could cause the patient's feeling of weakness. 3. Hypertension, controlled. 4. Electrolyte problem completely resolved from previous. PLAN: Echocardiogram. Consultation with Cardiology. We will suggest a stress test and possible loop recorder. Discussed with the patient at length. I also discussed with Dr. Torres through the nurse practitioner on his evaluation today with the patient. We will follow up on recommendation. MD SHAYY Cuadra/IRLANDA /[id number]
--- NOTE | 2020-03-05 14:15 | EXERCISE STRESS TEST ---
DATE OF STUDY: 03/05/2020 09:00:00 Stress Test - Treadmill ONLY TITLE OF REPORT: Exercise Treadmill Stress Test. INDICATION FOR STUDY: Chest pain. TECHNICAL DETAILS: After risks, benefits, pros and cons of today's exercise treadmill stress test explained to the patient, patient agreed to proceed. Patient was brought down to the stress lab where 12-lead EKG monitoring and blood pressure monitoring were obtained. She exercised on a Herberth protocol going for a total duration of 6 minutes going from a baseline heart rate of 98 beats per minute to a maximum of 157 beats per minute, which was above our target heart rate of 139 beats per minute. Blood pressure went from a baseline of 103/70 to 149/86. Patient exercised until the end of stage II protocol and terminated due to fatigue and achievement of target heart rate. Underlying EKG revealed normal sinus rhythm, normal axis, and no ST-T wave changes. At peak exercise, there was no ischemic EKG changes or symptoms. CONCLUSION: Normal exercise treadmill stress test showing no signs of chest pain or ischemic EKG changes. MD KEYON Zepeda/IRLANDA /[id number]
[2020-03-06] MEDS ORDERED: LOSARTAN POTASSIUM 100 MG TAB PO SCH (09:00)
== END 2020-03-05 13:31 | disposition home or self-care (01) ==
LOC: ER 16:00 → ERHOLD 17:00 → MED/SURG 18:09
PROVIDERS: ADMIT Internal Medicine; ATTEND Internal Medicine
DX: R07.9 Chest pain, unspecified (principal); R00.2 Palpitations; I10 Essential (primary) hypertension; K21.9 Gastro-esophageal reflux disease without esophagitis; Z88.8 Allergy status to other drugs, medicaments and biological substances; Z82.49 Family history of ischemic heart disease and other diseases of the circulatory system; Z80.0 Family history of malignant neoplasm of digestive organs; E78.5 Hyperlipidemia, unspecified; Z79.82 Long term (current) use of aspirin; Z11.59 Encounter for screening for other viral diseases
CPT/HCPCS: 36415 ×2; 74176; 80053 ×2; 81001; 82550 ×2; 82553 ×2; 83735; 84443; 84484 ×2; 85025 ×2; 93005; 93017; 93306; 99284; G0378 ×2; U0002

== ENCOUNTER 2021-04-03 17:48 | Emergency (ER) | payer SELFPAY ==
[~2021-04-03] VITALS: Ht 170.2 cm; Wt 72.6 kg
[~2021-04-03 17:48] MED LIST changes: +ASPIRIN81 MG PO
[2021-04-03] MEDS ORDERED: SODIUM CHLORIDE 0.9% 1000ML 1,000 ML IV STA (18:24)
[2021-04-03] MEDS ORDERED: ONDANSETRON HCL INJ 2MG/ML 2ML 2 MG/ML VIAL IV STA (18:24)
[2021-04-03] MEDS ORDERED: MECLIZINE HCL 12.5 MG TAB PO ONE (18:30)
[2021-04-03 19:08] LABS: BASOPHILS % 0.2 % (0.0-1.0); EOSINOPHILS # (AUTO) 0.1 (0.0-0.4); EOSINOPHILS % 0.6 % (0.0-6.0); HEMATOCRIT 37.1 % (34.2-44.1); HEMOGLOBIN 12.9 g/dL (12.0-16.0); LYMPHOCYTES # (AUTO) 1.3 (1.0-3.2); LYMPHOCYTES % 16.3 % (18.0-39.1); MEAN CORPUSCULAR HEMOGLOBIN 32.7 pg (28-32); MEAN CORPUSCULAR HGB CONC 34.8 g/dL (31-35); MEAN CORPUSCULAR VOLUME 93.9 fL (81-99); MONOCYTES # (AUTO) 0.4 (0.2-0.8); MONOCYTES % 4.9 % (4.4-11.3); NEUTROPHILS # (AUTO) 6.4 (2.1-6.9); NEUTROPHILS % 77.8 % (38.7-80.0); PLATELET COUNT 283 x10e3/uL (140-360); RED BLOOD COUNT 3.95 x10e6/uL (3.6-5.1); RED CELL DISTRIBUTION WIDTH 11.9 % (11.7-14.4)
[2021-04-03 19:28] LABS: ALANINE AMINOTRANSFERASE 18 IU/L (0-55); ALBUMIN 3.9 g/dL (3.5-5.0); ALKALINE PHOSPHATASE 52 IU/L (40-150); ANION GAP 18.7 mmol/L (8-16); BLOOD UREA NITROGEN 11 mg/dL (7-26); BUN/CREATININE RATIO 14 (6-25); CALCIUM 8.8 mg/dL (8.4-10.2); CARBON DIOXIDE 19 mmol/L (22-29); CHLORIDE 103 mmol/L (98-107); CREATINE KINASE 69 IU/L (29-168); CREATININE, SERUM 0.81 mg/dL (0.57-1.11); EST GLOMERULAR FILTRATION RATE 73 ML/MIN (60-); GLUCOSE 105 mg/dL (74-118); POTASSIUM 3.7 mmol/L (3.5-5.1); SODIUM 137 mmol/L (136-145)
[2021-04-03] MEDS ORDERED: MECLIZINE HCL12.5 MG PO (22:28)
[2021-04-03 22:55] VITALS: BP 152/87
== END 2021-04-03 22:35 | disposition home or self-care (01) ==
LOC: ER 18:25
DX: R42 Dizziness and giddiness (principal); I10 Essential (primary) hypertension; K21.9 Gastro-esophageal reflux disease without esophagitis
CPT/HCPCS: 36415; 70450; 71045; 80053; 82550; 82553; 84484; 85025; 93005; 99284; J2405; J7030; J8597